=== PATIENT | male | born 1950 | race Hispanic/Latino ===

== ENCOUNTER 2020-01-22 05:29 | Observation (INO) | payer OTHER ==
[2020-01-20 12:37] LABS: BASOPHILS % 0.2 % (0.0-1.0); EOSINOPHILS # (AUTO) 0.1 (0.0-0.4); EOSINOPHILS % 0.7 % (0.0-6.0); HEMATOCRIT 40.6 % (38.2-49.6); HEMOGLOBIN 13.4 g/dL (14.0-18.0); LYMPHOCYTES # (AUTO) 2.1 (1.0-3.2); LYMPHOCYTES % 21.3 % (18.0-39.1); MEAN CORPUSCULAR HEMOGLOBIN 29.3 pg (28-32); MEAN CORPUSCULAR VOLUME 88.6 fL (81-99); MONOCYTES # (AUTO) 0.6 (0.2-0.8); MONOCYTES % 5.8 % (4.4-11.3); NEUTROPHILS # (AUTO) 7.2 (2.1-6.9); NEUTROPHILS % 71.4 % (38.7-80.0); PLATELET COUNT 250 x10e3/uL (140-360); RED BLOOD COUNT 4.58 x10e6/uL (4.3-5.7); RED CELL DISTRIBUTION WIDTH 13.4 % (11.7-14.4)
[2020-01-20 12:47] LABS: INR 0.96; PROTHROMBIN TIME 13.3 seconds (11.9-14.5)
[2020-01-20 12:48] LABS: PARTIAL THROMBOPLASTIN TIME 24.3 seconds (23.8-35.5)
[2020-01-20 12:54] LABS: ANION GAP 16.3 mmol/L (8-16); BLOOD UREA NITROGEN 15 mg/dL (7-26); BUN/CREATININE RATIO 15 (6-25); CALCIUM 9.1 mg/dL (8.4-10.2); CARBON DIOXIDE 26 mmol/L (22-29); CHLORIDE 102 mmol/L (98-107); CREATININE, SERUM 1.02 mg/dL (0.72-1.25); EST GLOMERULAR FILTRATION RATE > 60 ML/MIN (60-); GLUCOSE 217 mg/dL (74-118); POTASSIUM 4.3 mmol/L (3.5-5.1); SODIUM 140 mmol/L (136-145)
--- NOTE | 2020-01-20 14:20 | Diagnostic Imaging Report ---
EXAMINATION: CHEST 2 VIEWS INDICATION: Pre-operative COMPARISON: None FINDINGS: LINES/TUBES:None LUNGS:The lungs are well-inflated. No focal consolidation or pulmonary edema. PLEURA:No pleural effusion or pneumothorax. MEDIASTINUM:The cardiomediastinal silhouette appears normal in size and shape. BONES/SOFT TISSUES:No acute osseous injury. ABDOMEN:No free air under the diaphragm. Round peripherally calcified structure in the left upper abdomen, possibly splenic. IMPRESSION: No focal pneumonia or pulmonary edema. Signed by: Jose Manuel De La O MD on 01/20/2020 2:16 PM
[~2020-01-22] VITALS: Ht 175.3 cm; Wt 108.0 kg
[~2020-01-22 05:29] MED LIST: AVODART0.5 MG PO; FENOFIBRATE145 MG PO; GABAPENTIN300 MG PO; HUMALOG100 UNITS/ SQ; LANTUS100 UNITS/ SQ; LEVEMIR100 UNIT/1 SC; LEVOTHYROXINE88 MCG PO; METFORMIN HCL500 MG PO; SIMVASTATIN40 MG PO; VASCEPA PO; VITAMIN D1000 UNI1 PO; avodart PO; glimepiride PO; lisinopril PO
[2020-01-22] MEDS ORDERED: CEFAZOLIN SOD 1 GM/NS 50ML 100 ML IV ONE (06:07)
[2020-01-22] MEDS ORDERED: THROMBIN FOR SOLN 5,000 UNIT VIAL ONE (07:07)
[2020-01-22] MEDS ORDERED: VANCOMYCIN HCL 1 GM VIAL ONE (07:07)
[2020-01-22] MEDS ORDERED: LIDOCAINE 1% W/EPINEPHRINE 20 ML VIAL ONE (07:07)
[2020-01-22] MEDS ORDERED: LIDOCAINE HCL (LTA) 4 ML SOLN ONE (07:15)
[2020-01-22] MEDS ORDERED: ACETAMINOPHEN 1000 MG/100 ML 100 ML IV ONE (07:15)
[2020-01-22] MEDS ORDERED: MEPERIDINE HCL INJ 25 MG/ML VIAL ONE (09:23)
[2020-01-22] MEDS ORDERED: CARISOPRODOL 350 MG TAB PO PRN (09:30)
[2020-01-22] MEDS ORDERED: ONDANSETRON HCL INJ 2MG/ML 2ML 2 MG/ML VIAL IV PRN (09:30)
[2020-01-22] MEDS ORDERED: ZOLPIDEM TARTRATE 5 MG TAB PO PRN (09:30)
[2020-01-22] MEDS ORDERED: HYDROMORPHONE 2MG/ML 2 MG/ML ML IV PRN ×2 (09:30→09:45)
[2020-01-22] MEDS ORDERED: MAGNESIUM/ALUMINUM/SIMETHICONE 30 ML UDC PO PRN (09:30)
[2020-01-22] MEDS ORDERED: CEPACOL SORE THROAT LOZENGES PO PRN (09:30)
[2020-01-22] MEDS ORDERED: PROMETHAZINE HCL (IM) 25 MG/ML VIAL IM PRN (09:30)
[2020-01-22] MEDS ORDERED: OXYCODONE/ACETAMINOPHEN 5-325 1 EACH TABLET PO PRN (09:30)
[2020-01-22] MEDS ORDERED: MORPHINE SULFATE 5 MG/ML VIAL IM PRN (09:30)
[2020-01-22] MEDS ORDERED: ACETAMINOPHEN 325 MG TAB PO PRN (09:30)
--- OUTSIDE RECORDS SUMMARY | 2020-01-22 11:02 | XMS REPORT | Continuity of Care Document ---
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 Name Role Phone [employer] Unavailable Un available Problems Problem Status Onset Date Classification Date Reported Comments Source ACUTE ATAXIA, BRAIN TIA Active 10/13/2019 [facility] LEG PAIN Active 10/13/2019 [facility] LOW BS Active 09/07/2016 [facility] HYPOGLYCEMIA; RHABDOMYOLYSIS; DIZZINESS Active 09/07/2016 [facility] Other specified diseases of jaws 09/04/2016 09/07/2016 [facility] Essential (primary) hypertension 09/04/2016 09/07/2016 [facility] NECK PAIN Active 09/04/2016 [facility] Discharge Diagnosis: Ingrown toenail 04/25/2015 04/28/2015 [facility] TOE PAIN Active 04/25/2015 [facility] Discharge Diagnosis: Abdominal pain, acute 08/23/2014 08/26/2014 [facility] LOWER BACK PAIN Active 08/23/2014 [facility] ABD PAIN Active 12/23/2013 [facility] Discharge Diagnosis: Abdominal pain 12/23/2013 12/26/2013 [facility] Discharge Diagnosis: Acute gastroenteritis 12/23/2013 12/26/2013 [facility] Final: 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, Type I [juvenile Type], Uncontrolled 04/22/2013 04/30/2013 [facility] [place] ABDOMINAL PAIN Active 01/21/2012 [facility] Diabetes mellitus (disorder) R esolved Problem [facility] [place] Hypertensive disorder, systemic arterial (disorder) Resolved Problem 10/16/2019 [facility] Final: Unspecified Essential Hypertension 04/30/2013 [facility] [place] Final: Osteoarthrosis, Unspecified Wheth er Generalized or Localized, Involving Lower Leg 04/30/2013 [facility] [place] Hypothyroidism (disorder) Acti ve Problem [facility] Diabetes mellitus type 2 (disorder) Active Problem [facility] METABOLIC ENCEPHALOPATHY Active [facility] RHABDOMYOLYSIS Active [facility] DIZZINESS AND GIDDINESS [facility] OTHER LACK OF COORDINATION Act cedric [facility] TRANSIENT CEREBRAL ISCHEMIC ATTACK, UNSP Active [facility] Medications Medication Details Route Status Patient Instructions Ordering Provider Order Date Source Levemir 40 unit, Route: SUB-Q, Bedtime, Dosing Weight 104.545, kg, Start date: 10/14/19 21:00:00 CDT, Duration: 30 day, Stop date: 11/12/19 21:00:00 CDT Inactive 10/15/2019 [facility] insulin glargine Notes: (Same as: Lantus) Do not hold insulin without contacting prescriber WASTE: F/P - Black; E - Municipal Trash Bin "single patient use only" Stable for 28 days at room temperature Expires in days from Date Inactive 10/15/2019 [facility] simvastatin 40 mg oral tablet 40 mg = 1 tab, PO, Bedtime, # 30 tab, 0 Refill(s), [id number], 175.26, cm, 10/14/19 5:37:00 CDT, Height, 104.545, kg, 10/14/19 5:37:00 CDT, Weight Active 10/14/2019 [facility] Walker 1 ea, MISC, Daily, # 1 ea, 0 Refill(s), [id number], 175.26, cm, 10/14/19 5:37:00 CDT, Height, 104.545, kg, 10/14/19 5:37:00 CDT, Weight Active 10/14/2019 [facility] Bedside Toilet/Commode Misc/Other 1 ea, MISC, ONCE, Will need a letter of medical necessity for Medicare/insurance reimbursement, # 1 ea, 0 Refill(s), [id number], 175.26, cm, 10/14/19 5:37:00 CDT, Height, 104.545, kg, 10/14/19 5:37:00 CDT, Weight Active 10/14/2019 [facility] Valium Notes: (Same as: Valium) Inactive 10/14/2019 [facility] Aspirin 81 MG Enteric Coated Tablet Notes: Do not crush or chew. (Same As: Ecotrin) Inactive 10/14/2019 [facility] Saline Flush 0.9% Notes: (Same as: BD Posiflush) Inactive 10/14/2019 [facility] Lisinopril Notes: (Same as: Pr inivil, Zestril) Inactive 10/14/2019 [facility] Synthroid Notes: Take 1 hour b efore or 2 hours after meal; Enteral feeds may interefere with the absorption of this medication. (Same as: Levothroid, Synthroid) Inactive 10/14/2019 [facility] Hydralazine Notes: (Same as: A presoline) May interfere w/enteral feedings. Take With Food Inactive 10/14/2019 [facility] Dextrose 50% Syringe (D50W) 12 .5 gm, 25 mL, Route: IVP, Drug Form: INJ, Dosing Weight 104.545, kg, PRN, PRN Blood Glucose Results, Start date: 10/14/19 5:19:00 CDT, Duration: 30 day, Stop date: 11/13/19 5:18:00 CDT, 0 Inactive 10/14/2019 [facility] Glucagon 1 mg, Route: IM, Drug form: PDR/INJ, PRN, Dosing Weight 104.545, kg, PRN Blood Glucose Results, Start date: 10/14/19 5:19:00 CDT, Duration: 30 day, Stop date: 11/13/19 5:18:00 CDT, 0 Inactive 10/14/2019 [facility] Insulin Lispro Notes: (Same as : Humalog) Roll in palms of hands gently; Do not shake vigorously. WASTE: F/P - Black; E - Municipal Trash Bin Stable for 28 days at room temperature. Expires in days from Date Inactive 10/14/2019 [facility] Saline Flush 0.9% Notes: (Same as: BD Posiflush) Inactive 10/14/2019 [facility] Aspirin 81 MG Chewable Tablet Notes: Take with food. Inactive 10/14/2019 [facility] insulin aspart Notes: Roll in palms of hands gently; Do not shake vigorously. (Same as: NovoLOG) "single patient use only" WASTE: F/P - Black; E - Municipal Trash Bin Stable for 28 days at room temperature. Expires in days from Date Inactive 09/08/2016 [facility] Humalog 5 unit, Route: SUB-Q, ONCE, Dosing Weight 113.636, kg, Start date: 09/08/16 11:33:00 CDT, Stop date: 09/08/16 11:33:00 CDT Inactive 09/08/2016 [facility] simvastatin 40 mg oral tablet 40 mg = 1 tab, PO, Bedtime, 0 Refill(s) Active 09/07/2016 [facility] Insulin Glargine 100 UNT/ML Injectable S olution [Lantus] 75 unit, SUB-Q, Bedtime, # 10 mL, 3 Refill(s) Active 09/07/2016 [facility] lisinopril 20 mg oral tablet 2 0 mg = 1 tab, PO, BID, 0 Refill(s) Active 09/07/2016 [facility] Humalog See Instructions, 1 un it SUB-Q TID-Before Meals, 0 Refill(s) Active 09/07/2016 [facility] levothyroxine 175 mcg (0.175 mg) oral tablet 175 microgram = 1 tab, PO, Daily, # 30 tab, 0 Refill(s) Active 09/07/2016 [facility] glimepiride 4 mg, PO, BID, 0 R efill(s) No Longer Active 09/07/2016 [facility] Fluticasone propionate 0.05 MG/ACTUAT Me tered Dose Nasal [place] 1 spray, NASAL, Daily, # 16 gm, 0 Refill(s) Active 09/07/2016 [facility] Fenofibrate 145 MG Oral Tablet 145 mg = 1 tab, PO, Daily, 0 Refill(s) Active 09/07/2016 [facility] Nifedical XL Notes: (Same as: Adalat CC, Procardia XL) Give on empty stomach. Take 1 hour before or 2 hours after meal; "Avoid grapefruit and grapefruit juice". Do not crush Inactive 09/07/2016 [facility] D5W 1,000 mL 1,000 mL, Rate: 7 5 ml/hr, Infuse over: 13.3 hr, Route: IV, Dosing Weight 113.636 kg, Total Volume: 1,000, Start date: 09/07/16 12:29:00 CDT, Duration: 30 day, Stop date: 10/07/16 12:28:00 CDT No Longer Active 09/07/2016 [facility] doxycycline hyclate 100 mg oral tablet 100 mg = 1 tab, PO, Q12H, X 7 day, # 14 tab, 0 Refill(s) Active 04/25/2015 [facility] Ondansetron 4 MG Disintegrating Tablet Special Instructions: Dissolve tab under tongue Active 08/23/2014 [facility] Acetaminophen 300 MG / Codeine Phosphate 30 MG Oral Tablet [Tylenol with Codeine #3] 1 - 2 tab, PO, Q4H, PRN Pain, X 2 day, # 20 tab, 0 Refill(s) No Longer Active 08/23/2014 [facility] Valium 10 mg, Route: PO, ONCE, Dosing Weight 106.364, kg, Priority: STAT, Start date: 08/23/14 10:57:00, Stop date: 08/23/14 10:57:00 Inactive 08/23/2014 [facility] Ondansetron 4 mg, Route: IVP, Drug form: INJ, ONCE, Dosing Weight 106.364, kg, Priority: STAT, Start date: 08/23/14 9:27:00, Stop date: 08/23/14 9:27:00 Inactiv e 08/23/2014 [facility] Morphine 4 mg, Route: IVP, Bernard g form: INJ, ONCE, Dosing Weight 106.364, kg, Priority: STAT, Start date: 08/23/14 9:27:00, Stop date: 08/23/14 9:27:00 Inactive 08/23/2014 [facility] Ciprofloxacin 500 MG Oral Tablet [Cipro] 500 mg = 1 tab, PO, Q12H, # 10 tab, 0 Refill(s) Active 12/24/2013 [facility] Dicyclomine Hydrochloride 20 MG Oral Tablet [Bentyl] 20 mg = 1 tab, PO, QID, # 28 tab, 0 Refill(s) Active 12/24/2013 [facility] Morphine 4 mg, Route: IVP, ONC E, Dosing Weight 106.818, kg, Priority: STAT, Start date: 12/23/13 17:18:00, Stop date: 12/23/13 17:18:00 Inactive 12/23/2013 [facility] Ondansetron 4 mg, Route: IVP, Drug form: INJ, ONCE, Dosing Weight 106.818, kg, Priority: STAT, Start date: 12/23/13 17:18:00, Stop date: 12/23/13 17:18:00 Inactive 12/23/2013 [facility] Ultram 50 mg oral tablet 50 mg , 1 tab, PO, Q4H, PRN, 20 tab, pain, Substitution Allowed PO Active [facility] 01/21/2012 [facility] Cipro 500 mg oral tablet 500 m g, 1 tab, PO, Q12H, 14 tab, Substitution Allowed, TAB PO Active [facility] 01/21/2012 [facility] ondansetron 4 mg, 2 mL, Route: IVP, Drug form: INJ, ONCE, Dosing Weight 111.364, kg, Priority: STAT, Start date: 01/21/12 7:55:00, Stop date: 01/21/12 7:55:00 IVP No Longer Active [facility] 01/21/2012 [facility] hydromorphone 1 mg, 1 mL, Rout e: IVP, Drug form: SOLN, ONCE, Dosing Weight 111.364, kg, Priority: STAT, Start date: 01/21/12 7:55:00, Stop date: 01/21/12 7:55:00 IVP No Longer Active [facility] 01/21/2012 [facility] Sodium Chloride 0.9% (Bolus) IV 500 mL 500 mL, Rate: 1,000 ml/hr, Infuse over: 0.5 hr, Route: IV, kg, Total Volume: 500, Bolus dose, Priority: STAT, Start date: 01/21/12 7:55:00, Duration: 1 doses or times, Stop date: 01/21/12 8:24:00 IV No Longer Active [facility] 01/21/2012 [facility] Saline Flush 0.9% 5 mL, Route: IVP, Drug Form: INJ, Dosing Weight 111.364, kg, PRN, PRN Line Flush, Start date: 01/21/12 7:55:00, Duration: 24 hr, Stop date: 01/22/12 7:54:00 IVP No Longer Active [facility] 01/21/2012 [facility] Allergies, Adverse Reactions, Alerts Substance Category Reaction Severity Reaction type Status Date Reported Comments Source No Known Medication Allergies Assertion Drug aller [facility] Immunizations No Data Provided for This Section Results Order Name Results Value Reference Range Date Interpretation Comments Source URINE AND STOOL UA Turbidity Clear (10/14/19 3:57 AM) Clear 10/14/2019 [facility] URINE AND STOOL UA Spec Grav 1.030 <=1.030 10/14/2019 [facility] URINE AND STOOL UA pH 5.0 5.0 - 8.0 10/14/2019 [facility] URINE AND STOOL UA Protein Negative mg/dL Negative mg/dL 10/14/2019 [facility] URINE AND STOOL UA Glucose 50 mg/dL Negative mg/dL 10/14/2019 [facility] URINE AND STOOL UA Ketones Negative mg/dL Negative mg/dL 10/14/2019 [facility] URINE AND STOOL UA Bili Negative *NA* (10/14/19 3:57 AM) Negative 10/14/2019 [facility] URINE AND STOOL UA Blood Negative (10/14/19 3:57 AM) Negative 10/14/2019 [facility] URINE AND STOOL UA Nitrite Negative (10/14/19 3:57 AM) Negative 10/14/2019 [facility] URINE AND STOOL UA Leuk Est Trace *ABN* (10/14/19 3:57 AM) Negative 10/14/2019 [facility] URINE AND STOOL UA Sq Epi Occasional /LPF Few /LPF 10/14/2019 [facility] URINE AND STOOL UA WBC 4 0 - 5 10/14/2019 [facility] URINE AND STOOL UA RBC 3 0 - 2 10/14/2019 [facility] URINE AND STOOL UA Bacteria Occasional /HPF None Seen /HPF 10/14/2019 [facility] URINE AND STOOL UA Mucus Few /LPF None Seen /LPF 10/14/2019 [facility] URINE AND STOOL UA Hyal Cast 1 0 - 2 10/14/2019 [facility] URINE AND STOOL UA Color Ltyellow 10/14/2019 [facility] URINE AND STOOL UA Urobilinogen <=1.0 mg/dL 0.1 - 1.0 10/14/2019 [facility] LIPIDS Trig 215 <=149 mg/dL 10/14/2019 [facility] LIPIDS Chol 146 <=199 mg/dL 10/14/2019 [facility] LIPIDS HDL 30 >=61 mg/dL 10/14/2019 [facility] LIPIDS CHD Risk 4.87 4.00 - 7.30 10/14/2019 [facility] LIPIDS LDL (Calculated) 73 <=99 mg/dL 10/14/2019 [facility] LIPIDS VLDL 43 10/14/2019 [facility] SPECIAL CHEMISTRY Hgb A1C 8.9 <=5.6 % 10/14/2019 [facility] CARDIAC ENZYMES Total CK 115 12 - 191 10/14/2019 [facility] CARDIAC ENZYMES CK MB 2.9 0.5 - 3.6 10/14/2019 [facility] CARDIAC ENZYMES Troponin-I <0.02 0.00 - 0.40 10/14/2019 [facility] CARDIAC ENZYMES CK MB Index 2.5 0.0 - 2.5 10/14/2019 [facility] CHEM PANEL Glucose Lvl 180 70 - 99 10/14/2019 [facility] CHEM PANEL BUN 22 7 - 22 10/14/2019 [facility] CHEM PANEL Creatinine Lvl 1.14 0.50 - 1.40 10/14/2019 [facility] CHEM PANEL Sodium Lvl 139 135 - 145 10/14/2019 [facility] CHEM PANEL Potassium Lvl 3.7 3.5 - 5.1 10/14/2019 [facility] CHEM PANEL Chloride Lvl 105 95 - 109 10/14/2019 [facility] CHEM PANEL CO2 28 24 - 32 10/14/2019 [facility] CHEM PANEL Calcium Lvl 8.9 8.5 - 10.5 10/14/2019 [facility] CHEM PANEL Total Protein 7.2 6.4 - 8.4 10/14/2019 [facility] CHEM PANEL Albumin Lvl 3.7 3.5 - 5.0 10/14/2019 [facility] CHEM PANEL ALT 36 0 - 65 10/14/2019 [facility] CHEM PANEL AST 24 0 - 37 10/14/2019 [facility] CHEM PANEL Alk Phos 70 39 - 136 10/14/2019 [facility] CHEM PANEL Bili Total 0.3 0.2 - 1.3 10/14/2019 [facility] CHEM PANEL AGAP 9.7 10.0 - 20.0 10/14/2019 [facility] CHEM PANEL B/C Ratio 19 6 - 25 10/14/2019 [facility] CHEM PANEL Globulin 3.5 2.7 - 4.2 10/14/2019 [facility] CHEM PANEL A/G Ratio 1.1 0.7 - 1.6 10/14/2019 [facility] CHEM PANEL eGFR 66 10/14/2019 Result Comment: The eGFR is calculated using the CKD-EPI formula. In most young, healthy individuals the eGFR will be >90 mL/min/1.73m2. The eGFR declines with age. An eGFR of 60-89 may be normal in some populations, particularly the elderly, for whom the CKD-EPI formula has not been extensively validated. Use of the eGFR is not recommended in the following populations:

Individuals with unstable creatinine concentrations, including patients and those with serious co-morbid conditions.

Patients with extremes in muscle mass or diet.

The data above are obtained from the National Kidney Disease Education Program (NKDEP) which additionally recommends that when the eGFR is used in patients with extremes of body mass index for purposes of drug dosing, the eGFR should be multiplied by the estimated BMI. [facility] WBC 10.5 3.7 - 10.4 10/14/2019 [facility] RBC 4.41 4.70 - 6.10 10/14/2019 [facility] Hgb 12.8 14.0 - 18.0 10/14/2019 [facility] Hct 38.0 42.0 - 54.0 10/14/2019 [facility] MCV 86.2 80.0 - 94.0 10/14/2019 [facility] MCH 29.0 27.0 - 31.0 10/14/2019 [facility] MCHC 33.6 32.0 - 36.0 10/14/2019 [facility] RDW 14.2 11.5 - 14.5 10/14/2019 [facility] Platelet 256 133 - 450 10/14/2019 [facility] MPV 7.8 7.4 - 10.4 10/14/2019 [facility] Segs 62.9 45.0 - 75.0 10/14/2019 [facility] Lymphocytes 28.2 20.0 - 40.0 10/14/2019 [facility] Monocytes 7.2 2.0 - 12.0 10/14/2019 [facility] Eosinophils 1.2 0.0 - 4.0 10/14/2019 [facility] Basophils 0.5 0.0 - 1.0 10/14/2019 [facility] Neutrophils # 6.6 1.5 - 8.1 10/14/2019 [facility] Lymphocytes # 3.0 1.0 - 5.5 10/14/2019 [facility] Monocytes # 0.8 0.0 - 0.8 10/14/2019 [facility] HEMATOLOGY Eosinophils # 0.1 0.0 - 0.5 10/14/2019 [facility] HEMATOLOGY Basophils # 0.1 0.0 - 0.2 10/14/2019 [facility] CARDIAC ENZYMES Total CK 1103 12 - 191 09/08/2016 [facility] CHEM PANEL Glucose Lvl 219 70 - 99 09/08/2016 [facility] CHEM PANEL CO2 31 24 - 32 09/08/2016 [facility] CHEM PANEL BUN 12 7 - 22 09/08/2016 [facility] CHEM PANEL Creatinine Lvl 1.26 0.50 - 1.40 09/08/2016 [facility] CHEM PANEL Sodium Lvl 136 135 - 145 09/08/2016 [facility] CHEM PANEL Potassium Lvl 3.6 3.5 - 5.1 09/08/2016 [facility] CHEM PANEL Chloride Lvl 98 95 - 109 09/08/2016 [facility] CHEM PANEL Calcium Lvl 8.9 8.5 - 10.5 09/08/2016 [facility] CHEM PANEL AGAP 10.6 10.0 - 20.0 09/08/2016 [facility] CHEM PANEL eGFR 60 09/08/2016 Result Comment: The eGFR is calculated using the CKD-EPI formula. In most young, healthy individuals the eGFR will be >90 mL/min/1.73m2. The eGFR declines with age. An eGFR of 60-89 may be normal in some populations, particularly the elderly, for whom the CKD-EPI formula has not been extensively validated. Use of the eGFR is not recommended in the following populations:

Individuals with unstable creatinine concentrations, including patients and those with serious co-morbid conditions.

Patients with extremes in muscle mass or diet.

The data above are obtained from the National Kidney Disease Education Program (NKDEP) which additionally recommends that when the eGFR is used in patients with extremes of body mass index for purposes of drug dosing, the eGFR should be multiplied by the estimated BMI. [facility] CHEM PANEL Phosphorus 2.8 2.5 - 4.5 09/08/2016 [facility] CHEM PANEL Magnesium Lvl 2.4 1.8 - 2.4 09/08/2016 [facility] HEMATOLOGY Lymphocytes # 2.9 1.0 - 5.5 09/08/2016 [facility] HEMATOLOGY Segs-Bands # 7.3 1.5 - 8.1 09/08/2016 [facility] HEMATOLOGY Basophils 0.4 0.0 - 1.0 09/08/2016 [facility] HEMATOLOGY Eosinophils 0.9 0.0 - 4.0 09/08/2016 [facility] HEMATOLOGY Monocytes 5.5 2.0 - 12.0 09/08/2016 [facility] HEMATOLOGY Lymphocytes 26.6 20.0 - 40.0 09/08/2016 [facility] HEMATOLOGY Eosinophils # 0.1 0.0 - 0.5 09/08/2016 [facility] HEMATOLOGY Monocytes # 0.6 0.0 - 0.8 09/08/2016 [facility] HEMATOLOGY Segs 66.6 45.0 - 75.0 09/08/2016 [facility] HEMATOLOGY MCHC 33.2 32.0 - 36.0 09/08/2016 [facility] HEMATOLOGY MCH 29.3 27.0 - 31.0 09/08/2016 [facility] HEMATOLOGY Platelet 197 133 - 450 09/08/2016 [facility] HEMATOLOGY MPV 8.8 7.4 - 10.4 09/08/2016 [facility] HEMATOLOGY RDW 15.8 11.5 - 14.5 09/08/2016 [facility] HEMATOLOGY RBC 4.57 4.70 - 6.10 09/08/2016 [facility] HEMATOLOGY WBC 10.9 3.7 - 10.4 09/08/2016 [facility] HEMATOLOGY MCV 88.3 80.0 - 94.0 09/08/2016 [facility] HEMATOLOGY Hct 40.3 42.0 - 54.0 09/08/2016 [facility] HEMATOLOGY Hgb 13.4 14.0 - 18.0 09/08/2016 [facility] CARDIAC ENZYMES CK MB Index 0.8 0.0 - 2.5 09/07/2016 [facility] CARDIAC ENZYMES Troponin-I <0.02 0.00 - 0.40 09/07/2016 [facility] CARDIAC ENZYMES CK MB 12.5 0.5 - 3.6 09/07/2016 [facility] CARDIAC ENZYMES Total CK 1521 12 - 191 09/07/2016 [facility] CHEM PANEL eGFR 61 09/07/2016 Result Comment: The eGFR is calculated using the CKD-EPI formula. In most young, healthy individuals the eGFR will be >90 mL/min/1.73m2. The eGFR declines with age. An eGFR of 60-89 may be normal in some populations, particularly the elderly, for whom the CKD-EPI formula has not been extensively validated. Use of the eGFR is not recommended in the following populations:

Individuals with unstable creatinine concentrations, including patients and those with serious co-morbid conditions.

Patients with extremes in muscle mass or diet.

The data above are obtained from the National Kidney Disease Education Program (NKDEP) which additionally recommends that when the eGFR is used in patients with extremes of body mass index for purposes of drug dosing, the eGFR should be multiplied by the estimated BMI. [facility] CHEM PANEL B/C Ratio 9 6 - 25 09/07/2016 [facility] CHEM PANEL A/G Ratio 1.1 0.7 - 1.6 09/07/2016 [facility] CHEM PANEL AGAP 11.3 10.0 - 20.0 09/07/2016 [facility] CHEM PANEL Globulin 3.7 2.7 - 4.2 09/07/2016 [facility] CHEM PANEL Bili Total 0.9 0.2 - 1.3 09/07/2016 [facility] CHEM PANEL CO2 30 24 - 32 09/07/2016 [facility] CHEM PANEL Calcium Lvl 8.8 8.5 - 10.5 09/07/2016 [facility] CHEM PANEL Albumin Lvl 4.0 3.5 - 5.0 09/07/2016 [facility] CHEM PANEL Total Protein 7.7 6.4 - 8.4 09/07/2016 [facility] CHEM PANEL Glucose Lvl 91 70 - 99 09/07/2016 [facility] CHEM PANEL BUN 11 7 - 22 09/07/2016 [facility] CHEM PANEL Creatinine Lvl 1.24 0.50 - 1.40 09/07/2016 [facility] CHEM PANEL Sodium Lvl 138 135 - 145 09/07/2016 [facility] CHEM PANEL Chloride Lvl 100 95 - 109 09/07/2016 [facility] CHEM PANEL Potassium Lvl 3.3 3.5 - 5.1 09/07/2016 [facility] CHEM PANEL ALT 34 0 - 65 09/07/2016 [facility] CHEM PANEL AST 71 0 - 37 09/07/2016 [facility] CHEM PANEL Alk Phos 79 39 - 136 09/07/2016 [facility] HEMATOLOGY Basophils # 0.1 0.0 - 0.2 09/07/2016 [facility] HEMATOLOGY Monocytes # 0.6 0.0 - 0.8 09/07/2016 [facility] HEMATOLOGY Segs 81.8 45.0 - 75.0 09/07/2016 [facility] HEMATOLOGY Segs-Bands # 9.6 1.5 - 8.1 09/07/2016 [facility] HEMATOLOGY Basophils 0.5 0.0 - 1.0 09/07/2016 [facility] HEMATOLOGY Lymphocytes # 1.5 1.0 - 5.5 09/07/2016 [facility] HEMATOLOGY Monocytes 4.9 2.0 - 12.0 09/07/2016 [facility] HEMATOLOGY Lymphocytes 12.7 20.0 - 40.0 09/07/2016 [facility] HEMATOLOGY Eosinophils 0.1 0.0 - 4.0 09/07/2016 [facility] HEMATOLOGY MCV 87.3 80.0 - 94.0 09/07/2016 [facility] HEMATOLOGY RDW 15.8 11.5 - 14.5 09/07/2016 [facility] HEMATOLOGY Hgb 13.3 14.0 - 18.0 09/07/2016 [facility] HEMATOLOGY WBC 11.8 3.7 - 10.4 09/07/2016 [facility] HEMATOLOGY MCHC 33.1 32.0 - 36.0 09/07/2016 [facility] HEMATOLOGY MCH 28.9 27.0 - 31.0 09/07/2016 [facility] HEMATOLOGY Hct 40.1 42.0 - 54.0 09/07/2016 [facility] HEMATOLOGY Platelet 201 133 - 450 09/07/2016 [facility] HEMATOLOGY MPV 8.7 7.4 - 10.4 09/07/2016 [facility] HEMATOLOGY RBC 4.59 4.70 - 6.10 09/07/2016 [facility] URINE AND STOOL UA Mucus Rare /LPF None Seen /LPF 09/07/2016 [facility] URINE AND STOOL UA Bacteria Occasional /HPF None Seen /HPF 09/07/2016 [facility] URINE AND STOOL UA RBC 0-2 /HPF 0 - 2 09/07/2016 [facility] URINE AND STOOL UA WBC 0-2 /HPF None Seen /HPF 09/07/2016 [facility] URINE AND STOOL Micro? Performed (09/07/16 10:40 AM) 09/07/2016 [facility] URINE AND STOOL UA Sq Epi Few /LPF Few /LPF 09/07/2016 [facility] URINE AND STOOL UA Bili Negative *NA* (09/07/16 10:40 AM) Negative 09/07/2016 [facility] URINE AND STOOL UA Leuk Est Negative (09/07/16 10:40 AM) Negative 09/07/2016 [facility] URINE AND STOOL UA Nitrite Negative (09/07/16 10:40 AM) Negative 09/07/2016 [facility] URINE AND STOOL UA Urobilinogen 0.2 0.1 - 1.0 09/07/2016 [facility] URINE AND STOOL UA Blood Trace *ABN* (09/07/16 10:40 AM) Negative 09/07/2016 [facility] URINE AND STOOL UA Color Yellow *NA* (09/07/16 10:40 AM) Yellow 09/07/2016 [facility] URINE AND STOOL UA Turbidity Clear (09/07/16 10:40 AM) Clear 09/07/2016 [facility] URINE AND STOOL UA pH 6.0 5.0 - 8.0 09/07/2016 [facility] URINE AND STOOL UA Protein Negative (09/07/16 10:40 AM) Negative 09/07/2016 [facility] URINE AND STOOL UA Spec Grav 1.010 <=1.030 09/07/2016 [facility] URINE AND STOOL UA Glucose 100 mg/dL Negative mg/dL 09/07/2016 [facility] URINE AND STOOL UA Ketones Negative *NA* (09/07/16 10:40 AM) Negative 09/07/2016 [facility] CHEM PANEL eGFR 91 08/23/2014 <sup>1</sup>Result Comment: The eGFR is calculated using the CKD-EPI formula. In most young, healthy individuals the eGFR will be >90 mL/min/1.73m2. The eGFR declines with age. An eGFR of 60-89 may be normal in some populations, particularly the elderly, for whom the CKD-EPI formula has not been extensively validated. Use of the eGFR is not recommended in the following populations:& lt;br/>
Individuals with unstable creatinine concentrations, including patients and those with serious co-morbid conditions.

Patients with extremes in muscle mass or diet.

The data above are obtained from the National Kidney Disease Education Program (NKDEP) which additionally recommends that when the eGFR is used in patients with extremes of body mass index for purposes of drug dosing, the eGFR should be multiplied by the estimated BMI. [facility] CHEM PANEL Chloride Lvl 100 95 - 109 08/23/2014 [facility] CHEM PANEL Albumin Lvl 3.5 3.5 - 5.0 08/23/2014 [facility] CHEM PANEL Calcium Lvl 8.2 8.5 - 10.5 08/23/2014 [facility] CHEM PANEL Potassium Lvl 3.8 3.5 - 5.1 08/23/2014 [facility] CHEM PANEL Creatinine Lvl 0.9 0.5 - 1.4 08/23/2014 [facility] CHEM PANEL Sodium Lvl 137 135 - 145 08/23/2014 [facility] CHEM PANEL AST 65 0 - 37 08/23/2014 [facility] CHEM PANEL Total Protein 7.2 6.4 - 8.4 08/23/2014 [facility] CHEM PANEL ALT 53 0 - 65 08/23/2014 [facility] CHEM PANEL BUN 9 7 - 22 08/23/2014 [facility] CHEM PANEL CO2 27 24 - 32 08/23/2014 [facility] CHEM PANEL Glucose Lvl 257 70 - 99 08/23/2014 <sup>2</sup>Interpretive Data: Adult ref erence range values reflect the clinical guidelines
of the [place] [employer]. [facility] CHEM PANEL Bili Total 0.4 0.2 - 1.3 08/23/2014 [facility] CHEM PANEL Alk Phos 74 39 - 136 08/23/2014 [facility] CHEM PANEL A/G Ratio 0.9 0.7 - 1.6 08/23/2014 [facility] CHEM PANEL B/C Ratio 10 6 - 25 08/23/2014 [facility] CHEM PANEL Globulin 3.7 2.0 - 4.0 08/23/2014 [facility] CHEM PANEL AGAP 13.8 10.0 - 20.0 08/23/2014 [facility] HEMATOLOGY Segs 66.1 45.0 - 75.0 08/23/2014 [facility] HEMATOLOGY Lymphocytes 27.5 20.0 - 40.0 08/23/2014 [facility] HEMATOLOGY Monocytes 5.3 2.0 - 12.0 08/23/2014 [facility] HEMATOLOGY Monocytes # 0.5 0.0 - 0.8 08/23/2014 [facility] HEMATOLOGY Basophils # 0.1 0.0 - 0.2 08/23/2014 [facility] HEMATOLOGY Eosinophils # 0.1 0.0 - 0.5 08/23/2014 [facility] Lymphocytes # 2.7 1.0 - 5.5 08/23/2014 [facility] HEMATOLOGY Eosinophils 0.6 0.0 - 4.0 08/23/2014 [facility] HEMATOLOGY Basophils 0.5 0.0 - 1.0 08/23/2014 [facility] Segs-Bands # 6.4 1.5 - 8.1 08/23/2014 [facility] MPV 9.2 7.4 - 10.4 08/23/2014 [facility] WBC 9.7 3.7 - 10.4 08/23/2014 [facility] RBC 4.20 4.70 - 6.10 08/23/2014 [facility] Hct 38.0 42.0 - 54.0 08/23/2014 [facility] Hgb 13.1 14.0 - 18.0 08/23/2014 [facility] MCV 90.5 80.0 - 94.0 08/23/2014 [facility] MCHC 34.5 32.0 - 36.0 08/23/2014 [facility] MCH 31.2 27.0 - 31.0 08/23/2014 [facility] RDW 15.8 11.5 - 14.5 08/23/2014 [facility] Platelet 173 133 - 450 08/23/2014 [facility] URINE AND STOOL UA Spec Grav 1.032 <=1.030 08/23/2014 [facility] URINE AND STOOL UA Turbidity Slight *ABN* (08/23/14 9:17 AM) Clear 08/23/2014 [facility] URINE AND STOOL UA Color Yellow *NA* (08/23/14 9:17 AM) Yellow 08/23/2014 [facility] URINE AND STOOL UA Urobilinogen <=1.0 mg/dL 0.1 - 1.0 08/23/2014 [facility] URINE AND STOOL UA Mucus Many /LPF None Seen /LPF 08/23/2014 [facility] URINE AND STOOL UA RBC 17 0 - 2 08/23/2014 [facility] URINE AND STOOL UA WBC 6 0 - 5 08/23/2014 [facility] URINE AND STOOL UA Leuk Est Negative (08/23/14 9:17 AM) Negative 08/23/2014 [facility] URINE AND STOOL UA Nitrite Negative (08/23/14 9:17 AM) Negative 08/23/2014 [facility] URINE AND STOOL UA Blood Small *ABN* (08/23/14 9:17 AM) Negative 08/23/2014 [facility] URINE AND STOOL UA Sq Epi Occasional /LPF Few /LPF 08/23/2014 [facility] URINE AND STOOL UA Glucose 500 mg/dL Negative mg/dL 08/23/2014 [facility] URINE AND STOOL UA Protein 30 mg/dL Negative mg/dL 08/23/2014 [facility] URINE AND STOOL UA pH 5.0 5.0 - 8.0 08/23/2014 [facility] URINE AND STOOL UA Bili Negative *NA* (08/23/14 9:17 AM) Negative 08/23/2014 [facility] URINE AND STOOL UA Ketones Negative mg/dL Negative mg/dL 08/23/2014 [facility] CHEM PANEL eGFR 64 12/23/2013 <sup>1</sup>Result Comment: The eGFR is calculated using the CKD-EPI formula. In most young, healthy individuals the eGFR will be >90 mL/min/1.73m2. The eGFR declines with age. An eGFR of 60-89 may be normal in some populations, particularly the elderly, for whom the CKD-EPI formula has not been extensively validated. Use of the eGFR is not recommended in the following populations:& lt;br/>
Individuals with unstable creatinine concentrations, including patients and those with serious co-morbid conditions.

Patients with extremes in muscle mass or diet.

The data above are obtained from the National Kidney Disease Education Program (NKDEP) which additionally recommends that when the eGFR is used in patients with extremes of body mass index for purposes of drug dosing, the eGFR should be multiplied by the estimated BMI. [facility] CHEM PANEL Albumin Lvl 4.5 3.5 - 5.0 12/23/2013 [facility] CHEM PANEL Creatinine Lvl 1.2 0.5 - 1.4 12/23/2013 [facility] CHEM PANEL Potassium Lvl 3.6 3.5 - 5.1 12/23/2013 [facility] CHEM PANEL BUN 16 7 - 22 12/23/2013 [facility] CHEM PANEL Glucose Lvl 328 70 - 99 12/23/2013 <sup>2</sup>Interpretive Data: Adult ref erence range values reflect the clinical guidelines
of the [place] [employer]. [facility] CHEM PANEL CO2 24 24 - 32 12/23/2013 [facility] CHEM PANEL Chloride Lvl 97 95 - 109 12/23/2013 [facility] CHEM PANEL Calcium Lvl 10.0 8.5 - 10.5 12/23/2013 [facility] CHEM PANEL Sodium Lvl 134 135 - 145 12/23/2013 [facility] CHEM PANEL Total Protein 9.2 6.4 - 8.4 12/23/2013 [facility] CHEM PANEL AST 56 0 - 37 12/23/2013 [facility] CHEM PANEL ALT 67 0 - 65 12/23/2013 [facility] CHEM PANEL Bili Total 0.6 0.2 - 1.3 12/23/2013 [facility] CHEM PANEL Alk Phos 102 39 - 136 12/23/2013 [facility] CHEM PANEL B/C Ratio 13 6 - 25 12/23/2013 [facility] CHEM PANEL AGAP 16.6 10.0 - 20.0 12/23/2013 [facility] CHEM PANEL A/G Ratio 1.0 0.7 - 1.6 12/23/2013 [facility] CHEM PANEL Globulin 4.7 2.0 - 4.0 12/23/2013 [facility] HEMATOLOGY Eosinophils 0.1 0.0 - 4.0 12/23/2013 [facility] HEMATOLOGY Basophils 0.6 0.0 - 1.0 12/23/2013 [facility] HEMATOLOGY Lymphocytes # 1.7 1.0 - 5.5 12/23/2013 [facility] HEMATOLOGY Segs-Bands # 16.5 1.5 - 8.1 12/23/2013 [facility] HEMATOLOGY Monocytes # 1.0 0.0 - 0.8 12/23/2013 [facility] HEMATOLOGY Basophils # 0.1 0.0 - 0.2 12/23/2013 [facility] HEMATOLOGY Lymphocytes 8.9 20.0 - 40.0 12/23/2013 [facility] HEMATOLOGY Monocytes 5.0 2.0 - 12.0 12/23/2013 [facility] HEMATOLOGY Segs 85.4 45.0 - 75.0 12/23/2013 [facility] HEMATOLOGY RDW 14.7 11.5 - 14.5 12/23/2013 [facility] HEMATOLOGY Platelet 319 133 - 450 12/23/2013 [facility] HEMATOLOGY MPV 9.2 7.4 - 10.4 12/23/2013 [facility] HEMATOLOGY RBC 5.63 4.70 - 6.10 12/23/2013 [facility] HEMATOLOGY WBC 19.3 3.7 - 10.4 12/23/2013 [facility] HEMATOLOGY MCV 89.8 80.0 - 94.0 12/23/2013 [facility] HEMATOLOGY Hgb 16.5 14.0 - 18.0 12/23/2013 [facility] HEMATOLOGY Hct 50.5 42.0 - 54.0 12/23/2013 [facility] HEMATOLOGY MCHC 32.6 32.0 - 36.0 12/23/2013 [facility] HEMATOLOGY MCH 29.3 27.0 - 31.0 12/23/2013 [facility] CHEMISTRY B/C Ratio 12 6 - 25 01/21/2012 Normal [facility] CHEMISTRY AGAP 13.8 10.0 - 20.0 01/21/2012 Normal [facility] CHEMISTRY A/G Ratio 1.1 0.7 - 1.6 01/21/2012 Normal [facility] CHEMISTRY Globulin 3.7 2.0 - 4.0 01/21/2012 Normal [facility] CHEMISTRY eGFR 73 01/21/2012 NA <sup>1</sup>Result Comment: The eGFR is calculated using the CKD-EPI formula. In most young, healthy individuals the eGFR will be >90 mL/min/1.73m2. The eGFR declines with age. An eGFR of 60-89 may be normal in some populations, particularly the elderly, for whom the CKD-EPI formula has not been extensively validated. Use of the eGFR is not recommended in the following populations:& lt;br/>
Individuals with unstable creatinine concentrations, including patients and those with serious co-morbid conditions.

Patients with extremes in muscle mass or diet.

The data above are obtained from the National Kidney Disease Education Program (NKDEP) which additionally recommends that when the eGFR is used in patients with extremes of body mass index for purposes of drug dosing, the eGFR should be multiplied by the estimated BMI. [facility] CHEMISTRY Creatinine Lvl 1.1 0.5 - 1.4 01/21/2012 Normal [facility] CHEMISTRY Glucose Lvl 311 70 - 99 01/21/2012 [facility] <sup>2</sup>Interpretive Data: Adult ref erence range values reflect the clinical guidelines
of the [place] [employer]. [facility] CHEMISTRY BUN 13 7 - 22 01/21/2012 Normal [facility] CHEMISTRY CO2 28 24 - 32 01/21/2012 Normal [facility] CHEMISTRY Calcium Lvl 8.7 8.5 - 10.5 01/21/2012 Normal [facility] CHEMISTRY Potassium Lvl 3.8 3.5 - 5.1 01/21/2012 [facility] CHEMISTRY Chloride Lvl 100 95 - 109 01/21/2012 [facility] CHEMISTRY Sodium Lvl 138 135 - 145 01/21/2012 [facility] CHEMISTRY Albumin Lvl 4.1 3.5 - 5.0 01/21/2012 [facility] CHEMISTRY Alk Phos 85 39 - 136 01/21/2012 [facility] CHEMISTRY ALT 62 0 - 65 01/21/2012 [facility] CHEMISTRY Total Protein 7.8 6.4 - 8.4 01/21/2012 [facility] CHEMISTRY Bili Total 0.7 0.2 - 1.3 01/21/2012 [facility] CHEMISTRY AST 45 0 - 37 01/21/2012 [facility] CHEMISTRY Lipase Lvl 246 73 - 393 01/21/2012 [facility] HEMATOLOGY Hct 39.2 42.0 - 54.0 01/21/2012 LOW [facility] HEMATOLOGY Platelet 211 133 - 450 01/21/2012 Normal [facility] HEMATOLOGY MCHC 34.2 32.0 - 36.0 01/21/2012 Normal [facility] HEMATOLOGY MCV 91.1 80.0 - 94.0 01/21/2012 Normal [facility] HEMATOLOGY RDW 14.5 11.5 - 14.5 01/21/2012 Normal [facility] HEMATOLOGY MCH 31.2 27.0 - 31.0 01/21/2012 [facility] HEMATOLOGY MPV 8.2 7.4 - 10.4 01/21/2012 [facility] HEMATOLOGY Hgb 13.4 14.0 - 18.0 01/21/2012 LOW [facility] HEMATOLOGY RBC 4.30 4.70 - 6.10 01/21/2012 L[facility] HEMATOLOGY WBC 10.2 3.7 - 10.4 01/21/2012 [facility] HEMATOLOGY Basophils # 0.1 0.0 - 0.2 01/21/2012 [facility] HEMATOLOGY Eosinophils # 0.1 0.0 - 0.5 01/21/2012 [facility] HEMATOLOGY Monocytes # 0.6 0.0 - 0.8 01/21/2012 [facility] HEMATOLOGY Lymphocytes 14.9 20.0 - 40.0 01/21/2012 L[facility] HEMATOLOGY Segs 77.7 45.0 - 75.0 01/21/2012 [facility] HEMATOLOGY Lymphocytes # 1.5 1.0 - 5.5 01/21/2012 [facility] HEMATOLOGY Segs-Bands # 8.0 1.5 - 8.1 01/21/2012 Normal [facility] HEMATOLOGY Basophils 0.6 0.0 - 1.0 01/21/2012 Normal [facility] HEMATOLOGY Eosinophils 1.2 0.0 - 4.0 01/21/2012 Normal [facility] HEMATOLOGY Monocytes 5.6 2.0 - 12.0 01/21/2012 [facility] URINALYSIS UA Urobilinogen 0.1 - 1.0 01/21/2012 [facility] URINALYSIS UA Color Ltyellow 01/21/2012 [facility] URINALYSIS UA RBC 42 0 - 2 01/21/2012 [facility] URINALYSIS UA WBC 91 0 - 5 01/21/2012 [facility] URINALYSIS UA Bacteria Few / HPF *NA* (01/21/2012 06:07:00) None S een 01/21/2012 [facility] URINALYSIS UA Turbidity Sligh t *ABN* (01/21/2012 06:07:00) Clear 01/21/2012 ABN [facility] URINALYSIS UA Nitrite Negat cedric (01/21/2012 06:07:00) Negati ve 01/21/2012 [facility] URINALYSIS UA Blood Moder ate *ABN* (01/21/2012 06:07:00) Negati ve 01/21/2012 [facility] URINALYSIS UA Bili Negat cedric *NA* (01/21/2012 06:07:00) Negati ve 01/21/2012 [facility] URINALYSIS UA Ketones Trace mg/dL *ABN* (01/21/2012 06:07:00) Negati ve 01/21/2012 [facility] URINALYSIS UA Sq Epi Occas ional /LPF *NA* (01/21/2012 06:07:00) Few 01/21/2012 [facility] URINALYSIS UA Leuk Est Moder ate *ABN* (01/21/2012 06:07:00) Negati ve 01/21/2012 [facility] URINALYSIS UA Spec Grav 1.020 <=1.030 01/21/2012 [facility] URINALYSIS UA Glucose 500 m g/dL *ABN* (01/21/2012 06:07:00) Negati ve 01/21/2012 [facility] URINALYSIS UA Protein 30 mg /dL *ABN* (01/21/2012 06:07:00) Negati ve 01/21/2012 ABN [facility] URINALYSIS UA pH 5.0 5.0 - 8.0 01/21/2012 Normal [facility] Pathology Reports No Data Provided for This Section Diagnostic Reports Report Value Date Source Brain wo contrast MRI PROCEDUR E INFORMATION: Exam: MR Head Without Contrast Exam date and time: 10/14/2019 1:43 PM Age: 68 years old Clinical indication: Weakness, extremity; Bilateral; Additional info: /rule out CVA TECHNIQUE: Imaging protocol: MR of the head without contrast. COMPARISON: BRAIN WO CONTRAST CT 10/13/2019 10:11 PM FINDINGS: Brain: Diffuse cerebral atrophy is noted, appropiate for age. A few scattered subcentimeter T2/FLAIR hyperintense foci are noted in the supratentorial white matter, likely representing normal aging white matter changes. Ventricles: Normal. No ventriculomegaly. Bones/joints: Unremarkable. Sinuses: Normal as visualized. No acute sinusitis. Mastoid air cells: Normal as visualized. No mastoid effusion. Orbits: Unremarkable. Soft tissues: Unremarkable. IMPRESSION: No acute/subacute stroke, hemorrhage, or mass. Alexis Che MD On 10/14/2019 14:17:06; [id number] 10/14/2019 [facility] Brain/Neck STROKE CTA Radiatio n Dose CTDIVOL = 0 (mGy): DLP = 1873.05 (mGy-cm) PROCEDURE INFORMATION: Exam: CT Angiography Head With Contrast Exam date and time: 10/14/2019 2:04 AM Age: 68 years old Clinical indication: Weakness; Additional info: /ataxia and left leg weakness TECHNIQUE: Imaging protocol: Computed tomography angiography of the head with intravenous contrast. 3D rendering (Not supervised by radiolog ist): MIP and/or 3D reconstructed images were created by the technologist. Radiation optimization: All CT scans at this facility use at least one of these dose optimization techniques: automated exposure control; mA and/or kV adjustment per patient size (includes targeted exams where dose is matched to clinical indication); or iterative reconstruction. Contrast material: OMNI; Contrast volume: 100 ml; Contrast route: INTRAVENOUS (IV); COMPARISON: BRAIN WO CONTRAST CT 10/13/2019 10:11 PM RADIATION DOSE METRICS: Total DLP (mGy-cm): 1873.05 FINDINGS: CT BRAIN: There is no evidence of acute vascular insults, hemorrhage, space-occupying lesions, hydrocephalus, midline shift, or extra-axial fluid collections. The calvarium is intact. CTA NECK: Measurement of potential stenosis is performed according to NASCET criteria. There is typical configuration of the aortic arch. There is no stenosis at the origins of the supra-aortic great vessels. The right common carotid artery, carotid bifurcation, and internal carotid artery are patent. There is no measurable stenosis of the right ICA. The left common carotid artery, carotid bifurcation, and internal carotid artery are patent. There is no measurable stenosis of the left ICA. The vertebral arteries are patent. CTA BRAIN: The bilateral internal carotid arteries are patent. The bilateral anterior and middle cerebral arteries are patent. The vertebrobasilar arteries and bilateral posterior cerebral arteries are patent. No aneurysms are identified. IMPRESSION: CT BRAIN 1. No acute intracranial abnormalities a re visualized. CTA NECK 2. No occlusion or stenosis of the bilat eral extracranial internal carotid arteries. 3. The bilateral vertebral arteries are patent. CTA BRAIN 4. No occlusion or appreciably significa nt stenosis of the [place]. 5. No cerebral aneurysms are identified. PROCEDURE INFORMATION: Exam: CT Angiography Neck With Contrast Exam date and time: 10/14/2019 2:04 AM Age: 68 years old Clinical indication: Weakness; Additional info: /ataxia and left leg weakness TECHNIQUE: Imaging protocol: Computed tomography angiography of the neck with intravenous contrast. 3D rendering (Not supervised by radiolog ist): MIP and/or 3D reconstructed images were created by the technologist. Radiation optimization: All CT scans at this facility use at least one of these dose optimization techniques: automated exposure control; mA and/or kV adjustment per patient size (includes targeted exams where dose is matched to clinical indication); or iterative reconstruction. Contrast material: OMNI; Contrast volume: 100 ml; Contrast route: INTRAVENOUS (IV); COMPARISON: BRAIN WO CONTRAST CT 10/13/2019 10:11 PM RADIATION DOSE METRICS: Total DLP (mGy-cm): 1873.05 FINDINGS: CT BRAIN: There is no evidence of acute vascular insults, hemorrhage, space-occupying lesions, hydrocephalus, midline shift, or extra-axial fluid collections. The calvarium is intact. CTA NECK: Measurement of potential stenosis is performed according to NASCET criteria. There is typical configuration of the aortic arch. There is no stenosis at the origins of the supra-aortic great vessels. The right common carotid artery, carotid bifurcation, and internal carotid artery are patent. There is no measurable stenosis of the right ICA. The left common carotid artery, carotid bifurcation, and internal carotid artery are patent. There is no measurable stenosis of the left ICA. The vertebral arteries are patent. CTA BRAIN: The bilateral internal carotid arteries are patent. The bilateral anterior and middle cerebral arteries are patent. The vertebrobasilar arteries and bilateral posterior cerebral arteries are patent. No aneurysms are identified. IMPRESSION: CT BRAIN 1. No acute intracranial abnormalities a re visualized. CTA NECK 2. No occlusion or stenosis of the bilat eral extracranial internal carotid arteries. 3. The bilateral vertebral arteries are patent. CTA BRAIN 4. No occlusion or appreciably significa nt stenosis of the [place]. 5. No cerebral aneurysms are identified. REFERENCES: NASCET CRITERIA. The degree of internal carotid artery stenosis is based on NASCET criteria. Normal is no stenosis. Mild is less than 50% stenosis. Moderate is 50-69% stenosis. Severe is 70% to 99% stenosis. Total occlusion is no detectable patent lumen. Everett Mo MD On 10/14/2019 02:47:43; [id number] 10/14/2019 [facility] wo contrast CT Radiation Dose CTDIVOL = 0 (mGy): DLP = 982.82 (mGy-cm) PROCEDURE INFORMATION: Exam: CT Head Without Contrast Exam date and time: 10/13/2019 10:11 PM Age: 68 years old Clinical indication: Weakness, extremity; Additional info: Weakness/weakness TECHNIQUE: Imaging protocol: Computed tomography of the head without contrast. Radiation optimization: All CT scans at this facility use at least one of these dose optimization techniques: automated exposure control; mA and/or kV adjustment per patient size (includes targeted exams where dose is matched to clinical indication); or iterative reconstruction. COMPARISON: No relevant prior studies available. RADIATION DOSE METRICS: Total DLP (mGy-cm): 982.82 FINDINGS: Brain: No acute territorial infarct or intracranial hemorrhage. No mass effect or midline shift. Atherosclerotic calcification of the distal internal carotid and vertebral arteries. Ventricles: No ventriculomegaly. Bones/joints: No acute displaced fracture. Sinuses: Mild mucoperiosteal thickening in the ethmoid sinus. No fluid levels. Mastoid air cells: Visualized mastoid air cells are well aerated. Soft tissues: Unremarkable. IMPRESSION: No acute territorial infarct or intracranial hemorrhage detected. COMMENTS: If there is further clinical concern for intracranial pathology, MRI of the brain may be performed for further assessment. Milind aJy MD On 10/13/2019 22:23:56; [id number] 10/13/2019 [facility] Chest 1view DX PROCEDURE INFOR MATION: Exam: XR Chest, 1 View Exam date and time: 10/13/2019 10:16 PM Age: 68 years old Clinical indication: Pain; Additional info: Chest pain/weakness TECHNIQUE: Imaging protocol: XR of the chest Views: 1 view. COMPARISON: No relevant prior studies available. FINDINGS: Lungs: No focal lung consolidation. Pleural space: No pleural effusion or pneumothorax. Heart/Mediastinum: Cardiac and mediastinal contours within normal limits. Bones/joints: Unremarkable. IMPRESSION: No radiographic evidence of acute cardiopulmonary disease. Briana Ashford MD On 10/13/2019 22:42:12; [id number] 10/13/2019 [facility] Shoulder series DX Study: Rig t, Shoulder series DX, 3 views COMPARISON: None. HISTORY: - M25.519 Pain in unspecified shoulder. FINDINGS: No acute fracture or subluxation is seen. Mild acromioclavicular osteoarthritis is seen. Mild glenohumeral osteoarthritis is seen with bony spurring along the inferior aspect of the glenoid. No focal soft tissue abnormality is seen. IMPRESSION: No acute osseous abnormality. Mild osteoarthritis of the acromioclavicular and glenohumeral joints. 06/10/2018 [facility] [address] [facility] [address] IMPRESSION: (Co ntinued...) 2. Nonobstructive 2 mm right nephrolith. SL: 14 CT abdomen and pelvis without IV contrast, Aug 23, 2014 10:45:53 AM CLINICAL HISTORY: Abdominal pain, acute ; right back and flank pain for one week; history kidney stones TECHNIQUE: Routine 5mm thick axial images of the abdomen and pelvis were obtained without any contrast. Coronal and sagittal reformations were created. COMPARISON: Abdominopelvic CT 12/23/2013 FINDINGS: Visualized lung bases are clear. The study is limited without the use of IV contrast for evaluation of the visceral parenchymal organs. However the partially visualized liver and spleen, pancreas, and adrenal glands are grossly normal. 4.5 cm dystrophically rim calcified splenic cyst is present anteriorly. Right nonobstructive 2 mm nephrolith is present. Minimal bilateral perinephric stranding persists. Otherwise, kidneys and ureters are grossly normal. Partially distended bladder is unremarkable. Gallbladder is present. The stomach, small intestine, and colon are grossly unremarkable. Appendix is intrinsically short, or there is an appendiceal stump status post possible appendectomy. No free air or free fluid is present. No mesenteric or retroperitoneal lymphadenopathy is present. Bones demonstrate bilateral sacroiliac joint fusion. IMPRESSION: No acute abnormality of the abdomen or pelvis. SL: 14 08/23/2014 [facility] Abdomen/Pelvis w IV contrast CT CT abdomen and pelvis with IV contrast, Dec 23, 2013 07:09:00 PM CLINICAL HISTORY: Abdominal pain, acute ; Suspect diverticulitis TECHNIQUE: Routine 5 mm thick axial images of the abdomen and pelvis are obtained with IV contrast. Routine 5 minute delayed images were obtained. Coronal and sagittal reformations were created. COMPARISON: Abdominopelvic CT January 2012 FINDINGS: Visualized lung bases are clear. Diffuse fatty infiltration of liver is present. 4.5 cm rim calcified into a splenic cyst is stable. Pancreas, adrenal glands, and kidneys are normal. The ureters are unremarkable. Partially distended bladder is unremarkable. Gallbladder is present. Small sliding hiatal hernia suggested. Otherwise, the stomach, small intestine, and colon are normal. Appendix is absent. No free air or free fluid is visualized within the abdominal cavity. No mesenteric or retroperitoneal lymphadenopathy is present. Bones are unremarkable. IMPRESSION: 1. Diffuse fatty infiltration of liver. 2. Small sliding hiatal hernia. SL: 14 12/23/2013 [facility] Abdomen RUQ US ABDOMEN RUQ US HX: Abdominal pain, acute COMPARISON: 01/20/2011 FINDINGS: Examination is limited by patient size and bowel gas. The gallbladder is within normal limits. The liver appears echogenic, consistent with diffuse fatty infiltration. Views of the liver are limited. The pancreas is not well-seen due to overlying bowel gas. Views of the right kidney reveal no hydronephrosis or perinephric edema. The right kidney measures 10.5 x 5.1 x 5.7 cm. The common hepatic duct is 5 mm in diameter which is within normal limits. The IVC is not visualized due to bowel gas. IMPRESSION: 1. Exam limited by bowel gas. 2. Fatty liver. 3. Gallbladder and common duct within no rmal limits. 4. No gross abnormality the right kidney . SL: 12 12/23/2013 [facility] Knee AP and lateral Mild trico mpartmental osteoarthritis is present with mild joint space narrowing, subchondral sclerosis, and minimal osteophytes. Minimal volume suprapatellar bursal effusion is also present. No acute fracture is seen. IMPRESSION: 1. Mild tricompartmental osteoarthritis. [facility] wo contrast MRI EXAMINATI ON: MRI of the left knee without contrast. HISTORY: Pain. COMPARISON: Plain films of the left knee from 07/24/2012. TECHNIQUE: Multiplanar, multisequence magnetic resonance imaging of the left knee was performed without administration of intravenous gadolinium contrast utilizing a 1.5 Shelly MRI. FINDINGS: Intercondylar notch: The ACL and PCL are intact. Medial compartment: Horizontal flap tear of the medial meniscus posterior body and posterior horn is seen, extending into the inferior articular surface. No high-grade chondral defect is present. The MCL is intact. Lateral compartment: No meniscal tear or chondral defect is seen. The LCL complex is intact. Patellofemoral compartment: Grade II chondromalacia of the lateral patellar facet is seen. Medial plica is noted. Extensor mechanism: The quadriceps and patellar tendons are intact. Other findings: Small joint effusion is seen. Miniscule Min's cyst is present. IMPRESSION: 1. Horizontal flap tear of the medial me niscus posterior body and posterior horn, extending into the inferior articular surface. 2. Grade II chondromalacia of the latera l patellar facet. 3. Small joint effusion and miniscule Ba ker's cyst. 08/02/2012 [facility] Knee AP and lateral History: P ain osteoarthritis. Comparison: None. Findings: There is very minimal patellar osteophytes, otherwise, the visualized osseous structures are unremarkable. There is a small suprapatellar joint effusion. Impression: 1. Minimal patellar osteophytosis and sm all suprapatellar joint effusion. If there is concern for internal derangement, a MRI study may be helpful. 07/24/2012 [facility] Consultation Notes No Data Provided for This Section Discharge Summaries No Data Provided for This Section History and Physicals No Data Provided for This Section Vital Signs Vital Sign Value Date Comments Source Temperature Oral (F) 98.5 F 10/14/2019 [facility] Heart Rate 96 10/14/2019 [facility] Respitory Rate 18 10/14/2019 [facility] Systolic (mm Hg) 149 10/14/2019 [facility] Diastolic (mm Hg) 79 10/14/2019 [facility] Temperature Oral (F) 98.1 F 10/14/2019 [facility] Heart Rate 91 10/14/2019 [facility] Respitory Rate 20 10/14/2019 [facility] Systolic (mm Hg) 141 10/14/2019 [facility] Diastolic (mm Hg) 87 10/14/2019 [facility] Temperature Oral (F) 98.1 F 10/14/2019 [facility] Heart Rate 81 10/14/2019 [facility] Respitory Rate 18 10/14/2019 [facility] Systolic (mm Hg) 127 10/14/2019 [facility] Diastolic (mm Hg) 80 10/14/2019 [facility] Height 175.26 cm 10/14/2019 [facility] Weight 104.545 10/14/2019 [facility] BMI Calculated 34.04 10/14/2019 [facility] Height 175.26 cm 10/14/2019 [facility] BMI Calculated 34.04 10/14/2019 [facility] Weight 104.545 10/14/2019 [facility] Systolic (mm Hg) 126 09/08/2016 [facility] Diastolic (mm Hg) 86 09/08/2016 [facility] Heart Rate 88 09/08/2016 [facility] Respitory Rate 20 09/08/2016 [facility] Temperature Oral (F) 97.9 F 09/08/2016 [facility] Temperature Oral (F) 97.7 F 09/08/2016 [facility] Heart Rate 74 09/08/2016 [facility] Respitory Rate 20 09/08/2016 [facility] Systolic (mm Hg) 130 09/08/2016 [facility] Diastolic (mm Hg) 75 09/08/2016 [facility] Respitory Rate 18 09/08/2016 [facility] Heart Rate 85 09/08/2016 [facility] Temperature Oral (F) 97.7 F 09/08/2016 [facility] Systolic (mm Hg) 114 09/08/2016 [facility] Diastolic (mm Hg) 66 09/08/2016 [facility] BMI Calculated 37 09/07/2016 [facility] Height 175.26 cm 09/07/2016 [facility] Weight 113.636 09/07/2016 [facility] Weight 113.636 09/07/2016 [facility] BMI Calculated 37 09/07/2016 [facility] Height 175.26 cm 09/07/2016 [facility] Temperature Oral (F) 98 F 09/04/2016 [facility] Respitory Rate 16 09/04/2016 [facility] Heart Rate 81 09/04/2016 [facility] Systolic (mm Hg) 156 09/04/2016 [facility] Diastolic (mm Hg) 79 09/04/2016 [facility] Heart Rate 79 09/04/2016 [facility] Respitory Rate 16 09/04/2016 [facility] Systolic (mm Hg) 162 09/04/2016 [facility] Diastolic (mm Hg) 87 09/04/2016 [facility] Height 175.26 cm 09/04/2016 [facility] Weight 113.636 09/04/2016 [facility] BMI Calculated 37 09/04/2016 [facility] Respitory Rate 18 09/04/2016 [facility] Heart Rate 72 09/04/2016 [facility] Systolic (mm Hg) 170 09/04/2016 [facility] Diastolic (mm Hg) 97 09/04/2016 [facility] Temperature Oral (F) 98.1 F 09/04/2016 [facility] Weight 109.091 04/25/2015 [facility] BMI Calculated 35.52 04/25/2015 [facility] Respitory Rate 18 04/25/2015 [facility] Temperature Oral (F) 98.3 F 04/25/2015 [facility] Systolic (mm Hg) 148 04/25/2015 [facility] Diastolic (mm Hg) 93 04/25/2015 [facility] Heart Rate 89 04/25/2015 [facility] Height 175.26 cm 04/25/2015 [facility] Temperature Oral (F) 97.4 F 08/23/2014 [facility] Heart Rate 79 08/23/2014 [facility] Respitory Rate 18 08/23/2014 [facility] Systolic (mm Hg) 136 08/23/2014 [facility] Diastolic (mm Hg) 87 08/23/2014 [facility] Weight 106.364 08/23/2014 [facility] Temperature Oral (F) 97.6 F 08/23/2014 [facility] Heart Rate 90 08/23/2014 [facility] Respitory Rate 16 08/23/2014 [facility] Systolic (mm Hg) 154 08/23/2014 [facility] Diastolic (mm Hg) 89 08/23/2014 [facility] BMI Calculated 34.78 12/23/2013 [facility] Weight 106.818 12/23/2013 [facility] Height 175.26 cm 12/23/2013 [facility] Respitory Rate 18 12/23/2013 [facility] Temperature Oral (F) 98.0 F 12/23/2013 [facility] Heart Rate 98 12/23/2013 [facility] Diastolic (mm Hg) 94 12/23/2013 [facility] Systolic (mm Hg) 154 12/23/2013 [facility] Height 175.26 cm 01/21/2012 [facility] Weight 111.364 01/21/2012 [facility] Encounters Location Location Details Encounter Type Encounter Number Reason For Visit Attending Provider ADM Date DC Date Status Source [facility] Emergency [id number] CHUCKY KRIS 01/21/2012 01/21/2012 Discharged [facility] [place] [facility] [id number] _[id number] Kirsty Santana 04/11/2013 04/12/2013 [facility] [id number] Hood Corea 12/23/2013 12/24/2013 [facility] [id number] Margy Davis 08/23/2014 08/23/2014 [facility] [id number] Tata Decker 04/25/2015 04/25/2015 [facility] Emergency [id number] Josh Dias 09/04/2016 09/04/2016 [facility] Inpatient [id number] 09/07/2016 09/08/2016 [facility] [place] [facility] [id number] Kia Chito 06/10/2018 06/11/2018 [facility] Observation [id number] Shannan Sanchez 10/14/2019 10/15/2019 [facility] Procedures Procedure Code Date Perfomer Comments Source [facility] [id number] [facility] Carpal tunnel release<sup>1</sup> [id number] left [facility]olecyst[facility] [id number] [facility] Hand repair<sup>2</sup> [id number] left [facility] Hung,[facility] Knee reoperations<sup>3</sup> [id number] right [facility] Hung,[facility] Assessment and Plan Assessment and Plan Date Source Extracted from:Title: History and Physic al Author: Shannan Sanchez MD Date: 10/14/19 68-year-old M with PMH of obesity, DM2, HTNand hypothyroidismadmitted for bilateral lower extremity weakness and uncontrolled hypertension 1.Bilateral leg weakness(R29.898) On exam only slight lower extremity weakness, howeverpatient with ataxic gait drifting towards his left side. Head CT, CTA head and neck without acute intracranial findings. --CVA MPP initiated --Follow-up TSH --Aspirin 81 mg daily --Brain MRI to rule out posterior CVA --Neurology consult 2.Uncontrolled hypertension(I10) Blood pressure 160/101 --Continue lisinopril --Hydralazine 10 mg p.o. every 6 hours P RN SBP greater than 165 or DBP greater than 100 3.Type 2 diabetes mellitus with hyperglycemia(E11.65) Blood [id number]. Patient on Levemiroutpatient --Continue Levemir --Insulin sliding scale with Accu-Cheks before meals and at bedtime 4.Hypothyroidism(E03.9) --Continue Synthroid 175 mcg daily, foll ow-up TSH/free T4 and titrate if indicated SCDs Home when stable 10/15/2019 [facility] Extracted from:Title: Discharge Summary * Author: Rigo Bocanegra MD Date: 09/08/16 Discharge Information Discharge Summary Information pt admitted with persistent hypoglycemia from glimepiride use. started on D5W and diet encouraged. blood sugars now stable and pt ready for discharge. will hold oral antihyperglycemics, continue insulin in home and follow up with PCP sunday. pt also had slightly elevated CPK, early rhabdo possibly but no PEPE or electrolyte imbalance. stable kidney function to follow up with PCP as well. Discharge Plan Discharge Summary Plan Discharge Status: improved. Discharge instructions given: to patient. Discharge disposition: discharge to home self care. Prescriptions: continue same medications, stop glimepiride. Extracted from:Title: Progress Note * Author: Rigo Bocanegra MD Date: 09/08/16 Impression and Plan 1-persistent hypoglycemia - BS 235 now, will administer insulin, pt tolerating diet, can resume adjusted insulin dose in home but discontinue glimepiride. pt has appt to see PCP who manages insulin in 3 days, Sunday. 2-elevated CPK - trending down, no PEPE, no hx CKD, electrolytes very stable, follow up PCP with labs 3-DM2- adjust insulin dose, stop glimepi ride 4-HTN - BP stable, continue home regimen . Extracted from:Title: General Admission H&P * Author: Rigo Bocanegra MD Date: 09/07/16 Impression and Plan 1-persistent hypoglycemia - pt on sulfon ylurea at home, didnt administer insulin last night due to decreased diet yesterday. Pt uses lantus and humalin twice daily likely due to job. start pt on D5W IV while effects of oral antihyperglycemics persist. monitor blood sugars closely. 2-elevated CPK - consider early rhabdo a lthough usually well above 1500 to cause PEPE, no chest pain, trop neg, also consider statin induced as well although LFTs normal and pt without myalgias. continue IVFs and monitor CPK trend. pt without PEPE and is nonoliguric. will check BMP, Mg, Phos, urine lytes and follow 3-DM2- on insulin and orals at home, hol d all insulin and continue D5W and encourage diet 4-HTN - elevated BP at moment, continue pt home regimen, pt missed dose today. 5-DVT prophylaxis- pt low risk, expected stay <2 nights, pt ambulating without difficulty 09/08/2016 [facility] Plan of Care No Data Provided for This Section Social History Social History Date Source Social History TypeResponse Substance Abuse Use: None. Alcohol Never Smoking Status Never smoker; Concerns about tobacco use in household: No; Exposure to Tobacco Smoke None; Cigarette Smoking Last 365 Days No; Reg Smoking Cessation Counseling No 09/07/2016 [facility] Social History TypeResponse Substance Abuse Use: None. Alcohol Never Smoking Status Never smoker; Concerns about tobacco use in household: No; Exposure to Tobacco Smoke None; Cigarette Smoking Last 365 Days No; Reg Smoking Cessation Counseling No entered on: 09/07/16 09/07/2016 [facility] Social History TypeResponse Alcohol Never Substance Abuse Use: None. Smoking Status Never smoker; Concerns about tobacco use in household: No; Exposure to Tobacco Smoke None; Cigarette Smoking Last 365 Days No; Reg Smoking Cessation Counseling No entered on: 10/14/19 09/07/2016 [facility] Family History No Data Provided for This Section Advance Directives No Data Provided for This Section Functional Status No Data Provided for This Section
--- OUTSIDE RECORDS SUMMARY | 2020-01-22 11:03 | XMS REPORT | Continuity of Care Document ---
Author Author [facility] t Organization [facility] Address [address] [place] [address] Phone Unavailable Care Team Providers Care Food Porter Name Role Phone MALORIE ECHOLS Attphys Unavailable Davion Sanchez Attphys Sheryl Dale Attphys Vega Dias Attphys Tamiko Deckeri Attphys Jared Davis Attphys Jerod Corea Attphys Kirsty Santana Attphys Davion Sanchez Admphys Problems Condition Name Condition Details Condition Category Status Onset Date Resolution Date Last Treatment Date Treating Clinician Comments Source ACUTE ATAXIA, BRAIN TIA ACUT E ATAXIA, BRAIN TIA Active 10/13/2019 [facility] Diagnosis Active 2019-10-13 00:00:00 2019-10-15 07:23:00 Raheem Mathews LEG PAIN LEG PAIN Active 10/13/2019 [facility] Diagnosis Active 2019-10-13 00:00:00 2019-10-13 22:48:00 Raheem Mathews LOW BS LOW BS Active 09/07/2016 [facility] Diagnosis Active 2016-09-07 00:00:00 2016-09-07 09:13:00 Raheem Mathews HYPOGLYCEMIA; RHABDOMYOLYSIS; DIZZINESS HYPOGLYCEMIA; RHABDOMYOLYSIS; DIZZINESS Active 09/07/2016 [facility] Diagnosis Active 2016-09-07 00:00:00 2016-09-08 10:50:00 Raheem Mathews NECK PAIN NECK PAIN Active 09/04/2016 [facility] Diagnosis Active 2016-09-04 00:00:00 2016-09-04 05:27:00 [facility] TOE PAIN TOE PAIN Active 04/25/2015 [facility] Active 2015-04-25 00:00:00 2015-04-25 14:38:00 Raheem Mathews LOWER BACK PAIN LOWE R BACK PAIN Active 08/23/2014 [facility] Active 2014-08-23 00:00:00 2014-08-23 09:58:00 [facility] ABD PAIN ABD PAIN Active 12/23/2013 [facility] Diagnosis Active 2013-12-23 09:00:00 2013-12-23 17:51:00 [facility] ABDOMINAL PAIN ABDO JACE PAIN Active 01/21/2012 [facility] Active 2012-01-21 00:00:00 2012-01-21 08:13:00 Raheem Mathews Final: Unspecified Essential Hypertension Final: Unspecified Essential Hypertension 04/30/2013 OPIJanie Leonard Problem 2013-04-30 15:47:50 Raheem Mathews Final: Osteoarthrosis, Unspecified Wheth er Generalized or Localized, Involving Lower Leg Final: Osteoarth rosis, Unspecified Whether Generalized or Localized, Involving Lower Leg 04/30/2013 OPIJanie Leonard Problem 2013-04-30 15:47:50 Raheem Mathews Diabetes mellitus (disorder) D iabetes mellitus (disorder) Res[facility] 2019-10-16 22:37:54 [facility] trinidad Mathews Hypertensive disorder, systemic arterial (disorder) Hypertensive disorder, systemic arterial (disorder) Resolved Problem 10/16/2019 [facility] Res olved 2019-10-16 22:37:54 Raheem fontenot Hypothyroidism (disorder) Hypo thyroidism (disorder) Active Problem 10/16/2019 [facility] Problem Active 2019-10-16 22:3 7:54 [facility] Diabetes mellitus type 2 (disorder) Diabetes mellitus type 2 (disorder) Active Problem 10/16/2019 [facility] Problem Active 2019-10-16 22:37:54 Raheem Mathews METABOLIC ENCEPHALOPATHY META BOLIC ENCEPHALOPATHY Active [facility] Diagnosis Active 2016-09-08 10:50:00 Raheem Mathews RHABDOMYOLYSIS RHAB DOMYOLYSIS Active [facility] Diagnosis Active 2016-09-08 10:50:00 Ct morieduin Mathews DIZZINESS AND GIDDINESS DIZZ INESS AND GIDDINESS Active [facility] Diagnosis Active 2016-09-08 10:50:00 [facility] OTHER LACK OF COORDINATION OTH ER LACK OF COORDINATION Active [facility] Diagnosis Active 2019-10-15 07:23:00 Raheem Mathews TRANSIENT CEREBRAL ISCHEMIC ATTACK, UNSP TRANSIENT CEREBRAL ISCHEMIC ATTACK, UNSP Active [facility] Diagnosis Active 2019-10-15 07:23:00 [facility] Other specified diseases of jaws Other specified diseases of jaws 09/04/2016 09/07/2016 [facility] Problem 2016-09-04 05:00:00 2016-09-07 01:24:44 2016-09-07 01:24:44 [facility] Essential (primary) hypertension Essential (primary) hypertension 09/04/2016 09/07/2016 [facility] Problem 2 05:00:00 2016-09-07 01:24:44 2016-09-07 01:24:44 [facility] Dis[facility] Diagnosis: Ingrown toenail Discharge Diagnosis: Ingrown toenail 04/25/2015 04/28/2015 [facility] Problem 2015-04-25 06:00:00 2015-04-28 01:34:59 2015-04-28 01:34:59 [facility] Discharge Diagnosis: Abdominal pain, acute Discharge Diagnosis: Abdominal pain, acute 08/23/2014 08/26/2014 [facility] Problem 2014-08-23 05:00:00 2014-08-26 00:40:36 2014-08-26 00:40:36 [facility] Discharge Diagnosis: Abdominal pain Discharge Diagnosis: Abdominal pain 12/23/2013 12/26/2013 [facility] Problem 2013-12-23 06:00:00 2013-12-26 06:19:45 2013-12-26 06:19:45 [facility] Discharge Diagnosis: Acute gastroenteritis Discharge Diagnosis: Acute gastroenteritis 12/23/2013 12/26/2013 [facility] Problem 2013-12-23 06:00:00 2013-12-26 06:19:45 2013-12-26 06:19:45 [facility] Final: 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, Type I [juvenile Type], Uncontrolled Final: 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, Type I [juvenile Type], Uncontrolled 04/22/2013 04/30/2013 [place] [place] Problem 2013-04-22 05:09:44 2013-04-30 15:4 7:50 2013-04-30 15:47:50 [facility] Allergies, Adverse Reactions, Alerts Allergy Name Allergy Type Status Severity Reaction(s) Onset Date Inacti ve Date Treating Clinician Comments Source No Known Medication Allergies No Known Medication Allergies Active Raheem Mathews Social History Social Habit Start Date Stop Date Quantity Comments Source Social History 2016-09-07 20:26:33 2016-09-07 20:26:33 [facility] Medications Ordered Medication Name Filled Medication Name Start Date Stop Da te Current Medication? Ordering Clinician Indication Dosage Frequency Signature (SIG) Comments Components Source Fabianoemir 2019-10-15 02:00:00 No 40 unit, Route: SUB-Q, Bedtime, Dosing Weight 104.545, kg, Start date: 10/14/19 21:00:00 CDT, Duration: 30 day, Stop date: 11/12/19 21:00:00 CDT Chelly Mathews insulin glargine 2019-10-15 02:00:00 No Notes: (Same as: Ave) Do not hold insulin without contacting prescriber WASTE: F/P - Black; E - Municipal Trash Bin "single patient use only" Stable for 28 days at room temperature Expires in days from Date Raheem Mathews simvastatin 40 mg oral tablet 2019-10-14 21:36:00 Yes 40 mg = 1 tab, PO, Bedtime, # 30 tab, 0 Refill(s), Pharmacy: [facility]/pharmacy #[id number], 175.26, cm, 10/14/19 5:37:00 CDT, Height, 104.545, kg, 10/14/19 5:37:00 CDT, Weight Raheem Mathews Walker 2019-10-14 21:35:00 Yes 1 ea, MISC, Daily, # 1 ea, 0 Refill(s), Pharmacy: [facility]/pharmacy #[id number], 175.26, cm, 10/14/19 5:37:00 CDT, Height, 104.545, kg, 10/14/19 5:37:00 CDT, Weight [facility] Bedside Toilet/Commode Misc/Other 2019-10-14 21:35:00 Yes 1 ea, MISC, ONCE, Will need a letter of medical necessity for Medicare/insurance reimbursement, # 1 ea, 0 Refill(s), Pharmacy: [facility]/pharmacy #[id number], 175.26, cm, 10/14/19 5:37:00 CDT, Height, 104.545, kg, 10/14/19 5:37:00 CDT, Weight [facility] Valium 2019-10-14 16:38:00 No Notes: (Same as: Valium) [facility] Aspirin 81 MG Enteric Coated Tablet 2019-10-14 14:00:00 No Notes: Do not crush or chew. (Same As: Ecotrin) [facility] Saline Flush 0.9% 2019-10-14 14:00:00 No Notes: (Same as: BD Posiflush) [facility] Lisinopril 2019-10-14 14:00:00 No Notes: (Same as: Prinivil, Zestril) [facility] Synthroid 2019-10-14 11:30:00 No Notes: Take 1 hour before or 2 hours after meal; Enteral feeds may interefere with the absorption of this medication. (Same as: Levothroid, Synthroid) [facility] Hydralazine 2019-10-14 10:23:00 No Notes: (Same as: Apresoline) May interfere w/enteral feedings. Take With Food [facility] Dextrose 50% Syringe (D50W) 2019-10-14 10:19:00 No 12.5 gm, 25 mL, Route: IVP, Drug Form: INJ, Dosing Weight 104.545, kg, PRN, PRN Blood Glucose Results, Start date: 10/14/19 5:19:00 CDT, Duration: 30 day, Stop date: 11/13/19 5:18:00 CDT, 0 [facility] Glucagon 2019-10-14 10:19:00 No 1 mg, Route: IM, Drug form: PDR/INJ, PRN, Dosing Weight 104.545, kg, PRN Blood Glucose Results, Start date: 10/14/19 5:19:00 CDT, Duration: 30 day, Stop date: 11/13/19 5:18:00 CDT, 0 [facility] Insulin Lispro 2019-10-14 10:19:00 No Notes: (Same as: Humalog) Roll in palms of hands gently; Do not shake vigorously. WASTE: F/P - Black; E - Municipal Trash Bin Stable for 28 days at room temperature. Expires in days from Date Raheem yousif Saline Flush 0.9% 2019-10-14 08:26:00 No Notes: (Same as: BD Posiflush) Raheem Mathews Aspirin 81 MG Chewable Tablet 2019-10-14 06:31:00 No Notes: Take with food. Raheem Mathews insulin aspart 2016-09-08 18:00:00 No Notes: Roll in palms of hands gently; Do not shake vigorously. (Same as: NovoLOG) "single patient use only" WASTE: F/P - Black; E - Municipal Trash Bin Stable for 28 days at room temperature. Expires in days from Date Raheem Mathews Humalog 2016-09-08 16:33:00 No 5 unit, Route: SUB-Q, ONCE, Dosing Weight 113.636, kg, Start date: 09/08/16 11:33:00 CDT, Stop date: 09/08/16 11:33:00 CDT Raheem Mathews simvastatin 40 mg oral tablet 2016-09-07 23:43:00 Yes 40 mg = 1 tab, PO, Bedtime, 0 Refill(s) Raheem Peng n Insulin Glargine 100 UNT/ML Injectable Solution [Lantus] 2016-09-07 23:43:00 Yes 75 unit, SUB-Q, Bedtime, # 10 mL , 3 Refill(s) Raheem Mathews lisinopril 20 mg oral tablet 2016-09-07 23:43:00 Yes 20 mg = 1 tab, PO, BID, 0 Refill(s) Raheem Mathews Humalog 2016-09-07 23:43:00 Yes See Instructions, 1 unit SUB-Q TID- Before Meals, 0 Refill(s) Raheem Oleamerrill porter levothyroxine 175 mcg (0.175 mg) oral tablet 2016-09-07 23:43:00 Yes 175 microgram = 1 tab, PO, Daily, # 30 tab, 0 Refill(s) Raheem Oleaann glimepiride 2016-09-07 23:43:00 No 4 mg, PO , BID, 0 Refill(s) Raheem Mathews Fluticasone propionate 0.05 MG/ACTUAT Metered Dose Nasal Spr ay 2016-09-07 23:43:00 Yes 1 spray, NASAL, Daily, # 16 g m, 0 Refill(s) Raheem Mathews Fenofibrate 145 MG Oral Tablet 2016-09-07 23:43:00 Yes 145 mg = 1 tab, PO, Daily, 0 Refill(s) Raheem Her fotnenot Nifedical XL 2016-09-07 21:00:00 No Notes: (Same as: Adalat CC, Procardia XL) Give on empty stomach. Take 1 hour before or 2 hours after meal; "Avoid grapefruit and grapefruit juice". Do not crush Raheem Mathews D5W 1,000 mL 2016-09-07 17:29:00 No 1,000 mL, Rate: 75 ml/hr, Infuse over: 13.3 hr, Route: IV, Dosing Weight 113.636 kg, Total Volume: 1,000, Start date: 09/07/16 12:29:00 CDT, Duration: 30 day, Stop date: 10/07/16 12:28:00 CDT Raheem Mathews doxycycline hyclate 100 mg oral tablet 2015-04-25 20:32:00 Yes 100 mg = 1 tab, PO, Q12H, X 7 day, # 14 tab, 0 Refill(s) Raheem Mathews Ondansetron 4 MG Disintegrating Tablet 2014-08-23 19:57:00 Yes Special Instructions: Dissolve tab under tongue Rahe[facility] Acetaminophen 300 MG / Codeine Phosphate 30 MG Oral Tablet [Tylenol with Codeine #3] 2014-08-23 19:57:00 No 1 - 2 tab, PO, Q4H, PRN Pain, X 2 day, # 20 tab, 0 Refill(s) Raheem Mathews Valium 2014-08-23 15:57:00 No 10 mg, Route: PO, ONCE, Dosing Weight 106.364, kg, Priority: STAT, Start date: 08/23/14 10:57:00, Stop date: 08/23/14 10:57:00 Raheem Oleaann Ondansetron 2014-08-23 14:27:00 No 4 mg, Route: IVP, Drug form: INJ, ONCE, Dosing Weight 106.364, kg, Priority: STAT, Start date: 08/23/14 9:27:00, Stop date: 08/23/14 9:27:00 Raheem fontenot Morphine 2014-08-23 14:27:00 No 4 mg, Route: IVP, Drug form: INJ, ONCE, Dosing Weight 106.364, kg, Priority: STAT, Start date: 08/23/14 9:27:00, Stop date: 08/23/14 9:27:00 [facility] fontenot Ciprofloxacin 500 MG Oral Tablet [Cipro] 2013-12-24 01:58:00 Yes 500 mg = 1 tab, PO, Q12H, # 10 tab, 0 Refill(s) [facility] Dicyclomine Hydrochloride 20 MG Oral Tablet [Bentyl] 2 01:57:00 Yes 20 mg = 1 tab, PO, QID, # 28 tab, 0 Refi ll(s) [facility] Morphine 2013-12-23 23:18:00 No 4 mg, Route: IVP, ONCE, Dosing Weight 106.818, kg, Priority: STAT, Start date: 12/23/13 17:18:00, Stop date: 12/23/13 17:18:00 [facility] Ondansetron 2013-12-23 23:18:00 No 4 mg, Route: IVP, Drug form: INJ, ONCE, Dosing Weight 106.818, kg, Priority: STAT, Start date: 12/23/13 17:18:00, Stop date: 12/23/13 17:18:00 [facility] argnetinanikunj Ultram 50 mg oral tablet 2012-01-21 15:52:46 Yes Navin schwartz Ralph 50 mg, 1 tab, PO, Q4H, PRN, 20 tab, pain, Substitution Allowed [facility] Cipro 500 mg oral tablet 2012-01-21 15:52:40 Yes Navin schwartz Ralph 500 mg, 1 tab, PO, Q12H, 14 tab, Substitution Allowed, TAB [facility] ondansetron 2012-01-21 13:55:00 No Navin Rosas 4 mg, 2 mL, Route: IVP, Drug form: INJ, ONCE, Dosing Weight 111.364, kg, Priority: STAT, Start date: 01/21/12 7:55:00, Stop date: 01/21/12 7:55:00 [facility] hydromorphone 2012-01-21 13:55:00 No Navin fitzgerald 1 mg, 1 mL, Route: IVP, Drug form: SOLN, ONCE, Dosing Weight 111.364, kg, Priority: STAT, Start date: 01/21/12 7:55:00, Stop date: 01/21/12 7:55:00 [facility] Sodium Chloride 0.9% (Bolus) IV 500 mL 2012-01-21 13:55:00 No Navin Rosas 500 mL, Rate: 1, 000 ml/hr, Infuse over: 0.5 hr, Route: IV, kg, Total Volume: 500, Bolus dose, Priority: STAT, Start date: 01/21/12 7:55:00, Duration: 1 doses or times, Stop date: 01/21/12 8:24:00 [facility] Saline Flush 0.9% 2012-01-21 13:55:00 No Navin haile 5 mL, Route: IVP, Drug Form: INJ, Dosing Weight 111.364, kg, PRN, PRN Line Flush, Start date: 01/21/12 7:55:00, Duration: 24 hr, Stop date: 01/22/12 7:54:00 [facility] Vital Signs Vital Name Observation Time Observation Value Comments Source Temperature Oral (F) 2019-10-14 20:19:00 98.5 F [facility] Heart Rate 2019-10-14 20:19:00 [facility] Respitory Rate 2019-10-14 20:19:00 [facility] [place] Systolic (mm Hg) 2019-10-14 20:19:00 D[facility] Diastolic (mm Hg) 2019-10-14 20:19:00 [facility] [place] Temperature Oral (F) 2019-10-14 16:23:00 98.1 F [facility] [place] Heart Rate 2019-10-14 16:23:00 [facility] Respitory Rate 2019-10-14 16:23:00 [facility] [place] Systolic (mm Hg) 2019-10-14 16:23:00 Dino [facility] Diastolic (mm Hg) 2019-10-14 16:23:00 [facility] [place] Temperature Oral (F) 2019-10-14 12:24:00 98.1 F [facility] Heart Rate 2019-10-14 12:24:00 [facility] Respitory Rate 2019-10-14 12:24:00 [facility] [place] Systolic (mm Hg) 2019-10-14 12:24:00 Dino [facility] Diastolic (mm Hg) 2019-10-14 12:24:00 [facility] Height 2019-10-14 10:37:00 175.26 cm [facility] Weight 2019-10-14 10:37:00 [facility] BMI Calculated 2019-10-14 10:37:00 [facility] [place] Height 2019-10-14 02:54:00 175.26 cm [facility] BMI Calculated 2019-10-14 02:54:00 [facility] Weight 2019-10-14 02:54:00 [facility] Systolic (mm Hg) 2016-09-08 16:32:00 D[facility] Diastolic (mm Hg) 2016-09-08 16:32:00 [facility] Heart Rate 2016-09-08 16:32:00 [facility] Respitory Rate 2016-09-08 16:32:00 [facility] [place] Temperature Oral (F) 2016-09-08 16:32:00 97.9 F [facility] Temperature Oral (F) 2016-09-08 12:24:00 97.7 F [facility] Heart Rate 2016-09-08 12:24:00 [facility] Respitory Rate 2016-09-08 12:24:00 [facility] Systolic (mm Hg) 2016-09-08 12:24:00 Dino [facility] Diastolic (mm Hg) 2016-09-08 12:24:00 [facility] [place] Respitory Rate 2016-09-08 10:42:00 [facility] Heart Rate 2016-09-08 10:42:00 [facility] Temperature Oral (F) 2016-09-08 10:42:00 97.7 F [facility] [place] Systolic (mm Hg) 2016-09-08 10:42:00 Dino [facility] Diastolic (mm Hg) 2016-09-08 10:42:00 [facility] [place] BMI Calculated 2016-09-07 20:00:00 [facility] Height 2016-09-07 20:00:00 175.26 cm [facility] Weight 2016-09-07 20:00:00 [facility] Weight 2016-09-07 14:16:00 [facility] BMI Calculated 2016-09-07 14:16:00 [facility] Height 2016-09-07 14:16:00 175.26 cm [facility] Temperature Oral (F) 2016-09-04 11:16:00 98 F [facility] Respitory Rate 2016-09-04 11:16:00 [facility] Heart Rate 2016-09-04 11:16:00 [facility] [place] Systolic (mm Hg) 2016-09-04 11:16:00 [facility] [place] Diastolic (mm Hg) 2016-09-04 11:16:00 [facility] [place] Heart Rate 2016-09-04 10:04:00 [facility] Respitory Rate 2016-09-04 10:04:00 [facility] Systolic (mm Hg) 2016-09-04 10:04:00 [facility] [place] Diastolic (mm Hg) 2016-09-04 10:04:00 [facility] Height 2016-09-04 09:22:00 175.26 cm [facility] Weight 2016-09-04 09:22:00 [facility] BMI Calculated 2016-09-04 09:22:00 [facility] [place] Respitory Rate 2016-09-04 09:22:00 [facility] Heart Rate 2016-09-04 09:22:00 [facility] [place] Systolic (mm Hg) 2016-09-04 09:22:00 Dino rial [facility] Diastolic (mm Hg) 2016-09-04 09:22:00 [facility] Temperature Oral (F) 2016-09-04 09:22:00 98.1 F [facility] Weight 2015-04-25 19:29:00 [facility] BMI Calculated 2015-04-25 19:29:00 [facility] [place] Respitory Rate 2015-04-25 19:29:00 [facility] Temperature Oral (F) 2015-04-25 19:29:00 98.3 F [facility] [place] Systolic (mm Hg) 2015-04-25 19:29:00 [facility] [place] Diastolic (mm Hg) 2015-04-25 19:29:00 [facility] [place] Heart Rate 2015-04-25 19:29:00 [facility] [place] Height 2015-04-25 19:29:00 175.26 cm [facility] Temperature Oral (F) 2014-08-23 20:26:00 97.4 F [facility] Heart Rate 2014-08-23 20:26:00 [facility] Respitory Rate 2014-08-23 20:26:00 [facility] [place] Systolic (mm Hg) 2014-08-23 20:26:00 Dino [facility] Diastolic (mm Hg) 2014-08-23 20:26:00 [facility] [place] Weight 2014-08-23 14:03:00 [facility] Temperature Oral (F) 2014-08-23 14:03:00 97.6 F [facility] Heart Rate 2014-08-23 14:03:00 [facility] [place] Respitory Rate 2014-08-23 14:03:00 [facility] Systolic (mm Hg) 2014-08-23 14:03:00 Dino [facility] Diastolic (mm Hg) 2014-08-23 14:03:00 [facility] BMI Calculated 2013-12-23 21:27:00 [facility] Weight 2013-12-23 21:27:00 [facility] Height 2013-12-23 21:27:00 175.26 cm [facility] Respitory Rate 2013-12-23 21:27:00 [facility] Temperature Oral (F) 2013-12-23 21:27:00 98.0 F [facility] [place] Heart Rate 2013-12-23 21:27:00 [facility] Diastolic (mm Hg) 2013-12-23 21:27:00 [facility] Systolic (mm Hg) 2013-12-23 21:27:00 [facility] [place] Height 2012-01-21 11:58:00 175.26 cm [facility] [place] Weight 2012-01-21 11:58:00 [facility] Procedures Procedure Date / Time Performed Performing Clinician [facility] Appendectomy [facility] Carpal tunnel release<sup>1</sup> [facility] Cholecystectomy [facility] Hand repair<sup>2</sup> [facility] Knee reoperations<sup>3</sup> Ct [facility] Encounters Start Date/Time End Date/Time Encounter Type Admission Type Attendi ng Clinicians Care Facility Care Department Encounter ID Source 2019-10-13 21:51:32 2019-10-14 19:27:00 Outpatient Shannan Chapmanel [facility] [id number] 2019-10-14 03:45:00 2019-10-14 03:45:00 Outpatient E [id number] 2018-06-10 09:57:00 2018-06-10 23:59:00 Outpatient ChitoDinorah MHHOIP HOIP [id number] 2016-09-07 09:07:00 2016-09-08 13:50:00 [id number] 2016-09-04 04:20:00 2016-09-04 06:25:00 Outpatient Karli Dias MHSE MHSE [id number] 2015-04-25 13:16:00 2015-04-25 14:58:00 Outpatient Tata Ghosh MHSE MHSE [id number] 2014-08-23 09:01:00 2014-08-23 15:27:00 Outpatient Margy Davis MHIE MHIE [id number] 2013-12-23 15:25:00 2013-12-23 20:25:00 Outpatient Hood Corea MHIE [facility]IE [id number] 2013-04-11 16:19:00 2013-04-11 23:59:00 Outpatient Lois Santana [facility] [id number] Results Test Description Test Time Test Comments Results Result Comments Source CHEST 2 VIEWS 2020-01-20 14:15:00 [facility] 1950 Sex: [place] [address] Patient Name: ASHKAN MCKEON JR MR #: [id number] : 1950 Age/Sex: 69/M Req #: [id number] Adm Physician: Ordered by: MALORIE ECHOLS MD Report #: [id number] Location: OR Room/Bed: Procedure: [id number] DX/CHEST 2 VIEWS Exam Date: 01/20/20 Exam Time: 1312 REPORT STATUS: Signed EXAMINATION: CHEST 2 VIEWS INDICATION: Pre-operative COMPARISON: None FINDINGS: LINES/TUBES:None LUNGS:The lungs are well-inflated. No focal consolidation or pulmonary edema. PLEURA:No pleural effusion or pneumothorax. MEDIASTINUM:The cardiomediastinal silhouette appears normal in size and shape. BONES/SOFT TISSUES:No acute osseous injury. ABDOMEN:No free air under the diaphragm. Round peripherally calcified structure in the left upper abdomen, possibly splenic. IMPRESSION: No focal pneumonia or pulmonary edema. Signed by: Kehinde Walters MD on 01/20/2020 2:16 PM Dictated By: KEHINDE WALTERS MD [id number] Transcribed By: SHABNAM on 01/20/20 1416 COPY TO: MALORIE ECHOLS MD URINE AND STOOL 2019-10-14 08:57:00 Clear (10/14/19 3:57 AM ) [facility] URINE AND STOOL 2019-10-14 08:57:00 Test Item UA Spec Grav (test code = UA Spec Grav) 1.030 1 [facility] [id number] 08:57:00* Test Item Value Reference Range Interpretation Comments UA pH (test code = UA pH) 5.0 1 5.0-8.0 [facility] [id number] 08:57:00Negative *NA*(10/14/19 3:57 AM) [facility] [id number] 08:57:00Negative (10/14/19 3:57 AM) [facility] [id number] 08:57:00Negative (10/14/19 3:57 AM) [facility] [id number] 08:57:00Trace *ABN*(10/14/19 3:57 AM) [facility] [id number] 08:57:004[facility] [id number] 08:57:003[facility] [id number] 08:57:001 [facility] [id number] 08:53:17667Xzikaajy [id number] 08:53:42262Kmklvoql ZvryyuyTMBXJI1824-64-49 08:53:0030[facility]annLIPIDS 2019-10-14 08:53:00* Test Item Value Reference Range Interpretation Comments CHD Risk (test code = CHD Risk) 4.87 1 4.00-7.30 [facility] [id number] 08:53:0073[facility] [id number] 08:53:00* Test Item Value Reference Range Interpretation Comments VLDL (test code = VLDL) 43 1 [facility]annSPECIAL [id number] 08:53:008.9[facility] HermannCARDIAC [id number] 03:08:66335Snxpdpkz HermannCARDIAC [id number] 03:08:00 2.9[facility] HermannCARDIAC [id number] 03:08:00<0.02[facility] CARDIAC [id number] 03:08:00* Test Item Value Reference Range Interpretation Comments CK MB Index (test code = CK MB Index) 2.5 1 <=2.5 [facility] HermannCHEM [id number] 03:08:94675Xgfmgfpo HermannCHEM PANEL 2019-10-14 03:08:0022[facility] HermannCHEM [id number] 03:08:001.14[facility] HermannCHEM [id number] 03:08:31709Ypcajvpy HermannCHEM [id number] 03:08:003.7[facility] HermannCHEM [id number] 03:08:06918Ghnjruii HermannCHEM [id number] 03:08:0028[facility] HermannCHEM [id number] 03:08:008.9 [facility]annCHEM [id number] 03:08:007.2[facility]annCHEM PANEL 2019-10-14 03:08:003.7[facility] HermannCHEM [id number] 03:08:0036[facility] HermannCHEM [id number] 03:08:0024[facility] HermannCHEM [id number] 03:08:0070[facility]annCHEM [id number] 03:08:000.3[facility]annCHEM [id number] 03:08:009.7[facility]annCHEM [id number] 03:08:00* Test Item Value Reference Range Interpretation Comments B/C Ratio (test code = B/C Ratio) 19 1 6-25 [facility]annCHEM [id number] 03:08:003.5[facility]annCHEM PANEL 2019-10-14 03:08:00* Test Item Value Reference Range Interpretation Comments A/G Ratio (test code = A/G Ratio) 1.1 1 0.7-1.6 [facility] LHNJG5334-42-22 03:08:0066[facility]HEMATOLOGY 2019-10-14 03:08:0010.5[facility] KmkwcmbAOHDIZDUNK7903-50-53 03:08:004.41[facility] SlzadotIQHLMREWDM1083-42-24 03:08:0012.8[facility] CbvlzhhZEPEUCITEQ2358-01-59 03:08:0038.0[facility] YknecdwZGRBIQIUSR4267-70-27 03:08:0086.2[facility] TUBJYANMEW4942-47-73 03:08:00* Test Item Value Reference Range Interpretation Comments MCH (test code = MCH) 29.0 pg 27.0-31.0 [facility] XvvvbbrEBGKAHRIGB7613-34-07 03:08:0033.[facility]MATOLOGY 2019-10-14 03:08:0014.2[facility] HfrqencGTPLVOPKJW8769-50-44 03:08:97933Hekbmwsj HhrylyjWCSYZRMQNQ9256-14-22 03:08:007.8[facility] CjlxqytMUEZCCHMMQ6492-99-60 03:08:0062.9[facility] QlnljybFPDITBVLKB3915-81-40 03:08:0028.2[facility] VCQJGUWMKC5619-16-12 03:08:007.2[facility] BnxwxprMBPKROEQNL0249-24-89 03:08:001.2 [facility] WgiucnmNMSRGFSPDB1092-94-58 03:08:000.5[facility]annHEMATOLOGY 2019-10-14 03:08:006.[facility] JtmrctnECKGHYHGUL1143-09-06 03:08:003.0[facility] WalzxjbMSVPHKOQBF1198-38-23 03:08:000.8[facility] HlukwguXUMQKVLIHO8368-28-94 03:08:000.1[facility] JpnudtmGTZOJASXXD0172-47-32 03:08:000.1[facility] CARDIAC THKCPJL5935-35-46 08:25:996977Dqtxpqra HermannCHEM BLBFZ4710-65-48 08:25:88446Zvwuhyjm [facility]annCHEM YAGDW2969-00-65 08:25:0031[facility] GSHEO0017-38-85 08:25:0012[facility] YVEKO6270-57-63 08:25:001.26 [facility] QUOUG1733-55-90 08:25:19515Guqklqhe HermannCHEM PANEL 2016-09-08 08:25:003.6[facility]annCHE[facility] SFUZZ5647-23-04 08:25:0098[facility] RAJZP9404-32-85 08:25:008.9[facility]annCHE[facility] ORMGK7776-58-70 08:25:0010.6[facility]annCHE[facility] AENKN1492-46-47 08:25:0060[facility] MXPTO8032-52-91 08:25:002.8[facility]CHE[facility] LYESB9601-43-66 08:25:002.4 [facility] NviuudrWYTNJCHWER8329-73-68 08:25:002.9[facility]annHEMATOLOGY 2016-09-08 08:25:007.3[facility] MtzfgsxYMZBVBSJIN4199-93-03 08:25:000.4[facility] NngvjefAVVOYBDAYA2698-89-76 08:25:000.9[facility] MimilunIYPBQQYUXH2647-56-21 08:25:005.5[facility] HrbxejuUKLVPSTBTK9464-39-48 08:25:0026.6[facility] WINONAPEPR9495-28-23 08:25:000.1[facility] AdbuaoxSZLBAQACZL1406-72-38 08:25:000.6 [facility] FkeulndKNVXSDZRRA4761-44-95 08:25:0066.6[facility]annHEMATOLOGY 2016-09-08 08:25:0033.2[facility] VacxjfhPZCQFJQOCK7365-45-32 08:25:00* Test Item Value Reference Range Interpretation Comments MCH (test code = MCH) 29.3 pg 27.0-31.0 [facility] AvxldfiZIQCCVEULP1511-87-16 08:25:27278Menfjyab HermannHEMATOLOGY 2016-09-08 08:25:008.8[facility] FjtajlgTGIKRGTJVE5961-93-47 08:25:0015.8[facility] EoufaudMTYEISIXFU2131-56-56 08:25:004.57[facility] CjcfkifLWFUCBCQLF4171-30-89 08:25:0010.9[facility] GxzwkjsKGNNMTZFWU6568-10-69 08:25:0088.3[facility] KXMHWDFBIR5129-34-01 08:25:0040.3[facility] GhmheduFRBEUNYWDS0614-76-43 08:25:00 13.4[facility]annCARDIAC WVJIIWK2614-33-50 15:42:000.8[facility]annCARDIAC AKSHVHK0496-67-21 15:42:00<0.02[facility]annCARD[facility]AC KFZJTGH0842-32-00 15:42:0012.5[facility]annCARD[facility]AC DSJMIFU9025-46-84 15:42:384582Wnguqbxx HermannCHEM EKWKE9174-81-80 15:42:0061[facility]annCHE[facility] XECQD0665-73-18 15:42:009[facility]CHE[facility] TYYYF9091-82-78 15:42:001.1[facility]annCHE[facility] BKIAM2929-99-32 15:42:0011.3[facility]annCHE[facility] WGUOA5609-79-36 15:42:003.7 [facility]CHE[facility] VUDOZ7675-05-98 15:42:000.9[facility]annCHEM PANEL 2016-09-07 15:42:0030[facility]CHE[facility] JUYPJ2191-67-99 15:42:008.8[facility]CHE[facility] YIJHO9590-36-17 15:42:004.0[facility]CHE[facility] CXBKW1691-48-09 15:42:007.7[facility]annCHE[facility] OEALE1421-26-75 15:42:0091[facility]CHE[facility] XUQYA1714-26-73 15:42:0011[facility]CHE[facility] MWUID3737-39-62 15:42:001.24 [facility] TDEDL3592-32-83 15:42:50127Lsnltszs HermannCHEM PANEL 2016-09-07 15:42:92712Oujkubey HermannCHEM POFGZ5090-39-98 15:42:003.3[facility]annCHE[facility] OWNOV9586-31-74 15:42:0034[facility]CHE[facility] RVAIH1598-22-96 15:42:0071[facility]CHE[facility] NLKJZ8849-41-18 15:42:0079[facility] ACJFPAHGVN7549-33-06 15:42:000.1[facility] HsdthamJWRKBPSCEU1131-12-37 15:42:000.6 [facility] MvmbnmsFGEKBQZGDU1134-74-05 15:42:0081.8[facility]annHEMATOLOGY 2016-09-07 15:42:009.6[facility] GxacwbqXDYVFBZLLS2450-05-59 15:42:000.5[facility] EftgvbeUSDRWKSOVB5368-42-15 15:42:001.5[facility] UrcehgyQFHZXYJGSR0683-00-47 15:42:004.9[facility] OilleftUAHSUIPIDS7278-84-41 15:42:0012.7[facility] HTNQRJHJTD4079-86-11 15:42:000.1[facility] ZubetejKZCNOBZCDF5712-64-44 15:42:00 87.3[facility] RijtfkoLFHAFQCWXF4898-20-84 15:42:0015.8[facility]annHEMATOLOGY 2016-09-07 15:42:0013.3[facility] QfxfrtsGLBNNVRSDB8948-59-82 15:42:0011.8[facility] SqmlntnODLEVHBDBO3052-77-63 15:42:0033.1[facility] AjtiiiwVIKBINDRUB5485-54-80 15:42:00* Test Item Value Reference Range Interpretation Comments MCH (test code = MCH) 28.9 pg 27.0-31.0 [facility] JkkgasnJCOPWVFMJH4175-14-86 15:42:0040.1[facility]annHEMATOLOGY 2016-09-07 15:42:50413Qituzdpl BtxtbikTQMRMQXNMD6213-34-57 15:42:008.7[facility] GnuapvcYJGWPNYOKR9035-03-55 15:42:004.59[facility]UR[facility] STOOL 2016-09-07 15:40:00Performed (09/07/16 10:40 AM)[facility] 2016-09-07 15:40:00Negative *NA*(09/07/16 10:40 AM)[facility] VIOAY9272-12-82 15:40:00Negative (09/07/16 10:40 AM)[facility] HFQHG0770-22-39 15:40:00Negative (09/07/16 10:40 AM)[facility] KUVIQ1743-37-12 15:40:000.2[facility] UDYYF1532-47-88 15:40:00 Trace *ABN*(09/07/16 10:40 AM)[facility] AODAQ2748-06-14 15:40:00 Yellow *NA*(09/07/16 10:40 AM)[facility] NJMTF7542-66-84 15:40:00 Clear (09/07/16 10:40 AM)[facility] RXHXP5380-42-71 15:40:00* Test Item Value Reference Range Interpretation Comments UA pH (test code = UA pH) 6.0 1 5.0-8.0 [facility] BJNCD2652-26-26 15:40:00Negative (09/07/16 10:40 AM) [facility] VQMQU6398-36-43 15:40:00* Test Item Value Reference Range Interpretation Comments UA Spec Grav (test code = UA Spec Grav) 1.010 1 [facility] NVELI9495-66-62 15:40:00Negative *NA*(09/07/16 10:40 AM)[facility]CHE[facility] EGCGV0255-68-03 14:17:0091[facility]annCHEM PANEL 2014-08-23 14:17:86566Fturomno HermannCHEM MIBQV0327-61-19 14:17:003.5[facility] IBDVS5836-26-99 14:17:008.2[facility]CHE[facility] AQQZS3802-84-69 14:17:003.8[facility]CHE[facility] EFXEC1972-25-81 14:17:000.9[facility]CHE[facility] PLFYC6981-16-94 14:17:62862Djgegmss HermannCHEM GEBPE2236-58-27 14:17:0065 [facility] TNLFI3850-67-88 14:17:007.2[facility]annCHEM PANEL 2014-08-23 14:17:0053[facility]annCHE[facility] SAOAJ7706-08-15 14:17:009[facility]CHE[facility] XREQG4145-97-66 14:17:0027[facility]annCHE[facility] HOZDH9454-23-01 14:17:71978Pfchpntx [facility]annCHEM UJXDU6466-73-74 14:17:000.4[facility]annCHE[facility] DMPRI5653-68-97 14:17:0074[facility]annCHE[facility] JMRDI3866-63-83 14:17:000.9 [facility]CHE[facility] NJVRA6526-18-07 14:17:0010[facility]annCHEM PANEL 2014-08-23 14:17:003.7[facility]annCHE[facility] TDKKW0486-66-28 14:17:0013.8[facility] RtxngdiELYPAHORPK4505-83-10 14:17:0066.1[facility] GjxnouiOERUUDGJWS6856-80-51 14:17:0027.5[facility] WkhtvhuFRAVHNGMVG3618-07-33 14:17:005.3[facility] ZGUQIESGJJ2407-35-43 14:17:000.5[facility] TqfszmsAEXENPCYQL3024-18-30 14:17:000.1 [facility] UhbjlsoEIGMETVFHT1100-08-90 14:17:000.1[facility]annHEMATOLOGY 2014-08-23 14:17:002.7[facility] PkjudcbMHCVEVGAVE5490-24-79 14:17:000.6[facility] GwajcmuWLWZIFLDUF9315-68-76 14:17:000.5[facility] ZhstiarPSGDPLKBJH7089-29-43 14:17:006.4[facility] JzfigpzWHKOFJFGRX8233-77-54 14:17:009.2[facility] FUCVXTYEGF0039-33-88 14:17:009.7[facility] YqshxueTYUHYIGJMV4789-54-61 14:17:00 4.20[facility] CokqhtsMDSKBVWQUM1751-90-06 14:17:0038.0[facility]annHEMATOLOGY 2014-08-23 14:17:0013.1[facility] QvoakueSBJHUMJXLQ4056-94-60 14:17:0090.5[facility] NfkvksfWXSSHLFMOB8219-41-02 14:17:0034.5[facility] CufdzbcAUWNWPUNQC5535-48-26 14:17:00* Test Item Value Reference Range Interpretation Comments MCH (test code = MCH) 31.2 pg 27.0-31.0 [facility] NrbhilfTKCYWHMERG5358-46-74 14:17:0015.8[facility]annHEMATOLOGY 2014-08-23 14:17:74215Pexxugsh HermannURINE AND UMNDJ9324-52-42 14:17:001.032 [facility] DLMCM8737-80-15 14:17:00Slight *ABN*(08/23/14 9:17 AM) [facility] PXBCB9305-92-79 14:17:00Yellow *NA*(08/23/14 9:17 AM) [facility] NCWFT0123-50-75 14:17:0017[facility] KYXNU3946-62-44 14:17:006[facility] ITZDJ3349-62-46 14:17:00 Negative (08/23/14 9:17 AM)[facility] FRXAX5583-93-96 14:17:00 Negative (08/23/14 9:17 AM)[facility] FZMRH7995-41-80 14:17:00Small *ABN*(08/23/14 9:17 AM)[facility] FHKGY5039-19-05 14:17:005.0 [facility] XLIZL8908-95-97 14:17:00Negative *NA*(08/23/14 9:17 AM) [facility] YPRJM7817-88-89 22:20:0064[facility]annCHEM PANEL 2013-12-23 22:20:004.5[facility]CHE[facility] AOKEB0192-24-24 22:20:001.2[facility]annCHE[facility] FOHGY3538-61-04 22:20:003.6[facility]CHE[facility] ICGZH0207-40-92 22:20:0016[facility]CHE[facility] QKHBL6359-28-23 22:20:25626Rbwqeibj HermannCHEM YACUL2909-93-35 22:20:0024[facility]annCHE[facility] GKFLE3740-08-29 22:20:0097 [facility] QXGCC6020-55-73 22:20:0010.0[facility]annCHEM PANEL 2013-12-23 22:20:02333Dyapikvc HermannCHEM KZAKH1024-37-21 22:20:009.2[facility]annCHE[facility] ZECCK0832-29-50 22:20:0056[facility]CHE[facility] QFERS5518-69-98 22:20:0067[facility]annCHE[facility] DHBMW6556-63-26 22:20:000.6[facility]annCHE[facility] LLXUW2780-99-71 22:20:68108Dmkuddco HermannCHEM OFYKO8820-30-42 22:20:0013 [facility]CHE[facility] ECOWB7797-11-02 22:20:0016.6[facility]annCHEM PANEL 2013-12-23 22:20:001.0[facility]annCHEM CXHRR3395-07-13 22:20:004.7[facility] IgzcetsHEKVIWJAUA1706-94-97 22:20:000.1[facility] FzwxvfhITUQAALBHM8962-09-30 22:20:000.6[facility] OcyjkqePQPDPPGPYH6141-33-39 22:20:001.7[facility] IOJRWAMVNA7228-28-55 22:20:0016.5[facility] BdywmndQLGJKNCROY0622-96-66 22:20:00 1.0[facility] DhazuecTMXINVLDXD1548-09-48 22:20:000.1[facility]annHEMATOLOGY 2013-12-23 22:20:008.9[facility] QkiccpfWTGKMYONMX8106-60-20 22:20:005.0[facility] IchpafxQTVYWDKGSO6382-62-07 22:20:0085.4[facility] HerwjrdCPPKSOSROS3279-96-88 22:20:0014.7[facility] XinhbjoIHHHIMQGGR0758-50-49 22:20:06348Cpgvnoye [place] AQRLTMUIHH0706-38-66 22:20:009.2[facility] WkvvaheZEQOZORXQW7930-26-50 22:20:00 5.63[facility] WrcfknqZCHCZRORLO7717-76-09 22:20:0019.3[facility]annHEMATOLOGY 2013-12-23 22:20:0089.8[facility] FwggmocVWRHJPDEMY6004-22-73 22:20:0016.5[facility] VcukuybDNPRGDROGF5437-44-81 22:20:0050.5[facility] SegbzcxRFBIJVBPVN9819-80-40 22:20:0032.6[facility] YoebaeqRQTLEFXCAI6379-00-69 22:20:00* Test Item Value Reference Range Interpretation Comments MCH (test code = MCH) 29.3 pg 27.0-31.0 [facility] NvtngztRNPZDAPNW4738-48-51 14:15:0012[facility]annCHEMISTRY 2012-01-21 14:15:0013.8[facility] UmcyjswNQMABIGQA8979-91-98 14:15:001.1[facility] NkivhpdUQXHUGSAX5479-22-06 14:15:003.7[facility] UwgfwgbGJDXHXHOG0822-87-86 14:15:0073[facility] EbtislyQGHTPBJBU8874-44-92 14:15:001.1[facility] RROHODSIT6329-58-59 14:15:09588Blzhjefd RqwkploJEMASAYRG2801-76-98 14:15:0013 [facility] EpouaoxYNGRDOPVM4970-42-62 14:15:0028[facility]annCHEMISTRY 2012-01-21 14:15:008.7[facility] YbgynpyVZSUVUZFZ3525-57-20 14:15:003.8[facility] JjteyhbLRMGWNWRO6710-00-83 14:15:17357Hahsfwan EntoaxqJKTWRGPFG2838-54-78 14:15:19119Qxeaiifb VviyxnfWMUOGLNQG0083-77-54 14:15:004.1[facility] IXODCHSZX0612-21-33 14:15:0085[facility] TtfapxaIMIIFXVPI8748-33-00 14:15:0062 [facility] YsjknbzBFIEQAIHM3135-98-67 14:15:007.8[facility] HermannCHEMISTRY 2012-01-21 14:15:000.7[facility] CpgrynaMQNQMTXCY1473-29-08 14:15:0045[facility] DffixaqLAOVCLDGP1212-80-08 14:15:39743Qlytlqpw IuuqzqzWORUNEZLFP0130-68-16 14:15:0039.2[facility] JlsqlhdIBDHEKZFOU5553-82-33 14:15:02050Jqbyhirp [facility] MYCPFUXDAE4236-53-95 14:15:0034.2[facility] ZkcnzblMIGIQTNQNL9748-17-56 14:15:00 91.1[facility] GqrhyxrINOCGZPTQY4802-87-38 14:15:0014.5[facility]annHEMATOLOGY 2012-01-21 14:15:00* Test Item Value Reference Range Interpretation Comments MCH (test code = MCH) 31.2 pg 27.0-31.0 H [facility] LsjjowiINMFIDRNQR5143-29-58 14:15:008.2[facility]annHEMATOLOGY 2012-01-21 14:15:0013.4[facility] YvotrwuBZTUJIYULA3742-47-86 14:15:004.30[facility] BnxsziaCYMPHDDUHQ0189-28-49 14:15:0010.2[facility] KniysxwEDXZZWPSGZ3259-61-85 14:15:000.1[facility] NpthwldGZZZPVZHFV2513-92-20 14:15:000.1[facility] CCBRGHTMPO0661-56-07 14:15:000.6[facility] VoydmmbHIRBTWLUZX6058-38-22 14:15:00 14.9[facility] LmceuuwDABITUCONE5526-72-38 14:15:0077.7[facility]annHEMATOLOGY 2012-01-21 14:15:001.5[facility] YlodtqhKPNAWWZHLR0664-39-65 14:15:008.0[facility] UjhyjdrANUJZSEZDN4897-68-30 14:15:000.6[facility] MlimrftKIYTFJUSOR8203-99-70 14:15:001.2[facility] ZpjcychZWBUUTNLEY9053-09-61 14:15:005.6[facility] ORMERAPEUC9460-05-86 12:07:0042[facility] OvvpzfdRXTMLRPQOK2575-11-86 12:07:0091 [facility] XgsjkteTPIXOPHIUL9348-70-80 12:07:00Few /HPF *NA*(01/21/2012 06:07:00) [facility] CjzjuesZKNNIULLVF4931-47-71 12:07:00Slight *ABN*(01/21/2012 06:07:00) [facility] JbvvsycMBTZMFHGQL1028-60-77 12:07:00Negative (01/21/2012 06:07:00) [facility] TzbgqcyWYYNUKNXGU1170-01-00 12:07:00Moderate *ABN*(01/21/2012 06:07:00) [facility] MkezphgKXPUTBDSZK4303-82-08 12:07:00Negative *NA*(01/21/2012 06:07:00) [facility] HxrvaynBQHELPYFFB8289-37-42 12:07:00Trace mg/dL *ABN*(01/21/2012 06:07:00) [facility] PlcykyyNTUWDXJABT9921-76-31 12:07:00 Occasional /LPF *NA*(01/21/2012 06:07:00) [facility] JlxstorSVUXSBCHNQ6556-09-36 12:07:00Moderate *ABN*(01/21/2012 06:07:00) [facility] HermannURINALYSIS 2012-01-21 12:07:001.020[facility] TsncookWIVZFLTIBL2454-83-72 12:07:10986 mg/dL *ABN*(01/21/2012 06:07:00) [facility] WmoqqxrZNIPBKKKLP1937-02-84 12:07:0030 mg/dL *ABN*(01/21/2012 06:07:00) [facility] DyeghupOKMVFOVFJT0967-87-99 12:07:00 5.0[facility]
[2020-01-22] MEDS ORDERED: MORPHINE SULFATE INJ 4 MG/ML INJ 1ML IM PRN (11:15)
[2020-01-22 11:16] VITALS: BP 147/88
[2020-01-22] MEDS: LACTATED RINGER'S 1,000 ML IV SCH ×2 (11:30→23:28)
[2020-01-22 11:31] VITALS: BP 147/88
[2020-01-22] MEDS ORDERED: ROCURONIUM BROMIDE 10 MG/ML 5ML VIAL IV ONE (12:07)
[2020-01-22] MEDS ORDERED: NEOSTIGMINE 1 MG/ML 10ML VIAL ONE (12:07)
[2020-01-22] MEDS ORDERED: DEXAMETHASONE SOD PHOS INJ 4 MG/ML VIAL ONE (12:07)
[2020-01-22] MEDS ORDERED: LIDOCAINE HCL 2% LOCAL INJ 5 ML SDV VIAL INJ ONE (12:07)
[2020-01-22] MEDS ORDERED: GLYCOPYRROLATE INJ 0.2 MG/ML VIAL ONE (12:07)
[2020-01-22] MEDS ORDERED: PROPOFOL IV EMULSION 10 MG/ML 20 ML VIAL ONE (12:07)
[2020-01-22] MEDS ORDERED: ONDANSETRON HCL INJ 2MG/ML 2ML 2 MG/ML VIAL ONE (12:07)
[2020-01-22] MEDS ORDERED: PHENYLEPHRINE HCL 1% 10 MG/ML VIAL ONE (12:07)
[2020-01-22] MEDS ORDERED: SEVOFLURANE INHAL SOLN 250 ML PEN BTL ONE (12:07)
[2020-01-22] MEDS ORDERED: MIDAZOLAM HCL 2 MG/2 ML VIAL ONE (12:47)
[2020-01-22] MEDS ORDERED: FENTANYL CITRATE/PF 100MCG/2 ML INJ ONE (12:47)
--- NOTE | 2020-01-22 13:33 | Operative Report ---
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 PROCEDURES: 1. C3-4 anterior cervical diskectomy and microsurgical osteophyte resection and allograft fusion, 79465. 2. C4-5 anterior cervical diskectomy and microsurgical osteophyte resection and allograft fusion, 77859. 3. Preparation of tricortical iliac crest allograft, [id number]. 4. C3-C4-C5 anterior cervical plating with Synthes CSLP plate, 11439. ANESTHESIA: General. INDICATIONS: The patient is a 69-year-old man, who presents with C3-4 and C4-5 spondylosis and disk herniations with cord compression and severe cervical myelopathy syndrome. He was taken to surgery for 2-level anterior cervical decompression and fusion. PROCEDURE IN DETAIL: After induction of general anesthesia, the patient was placed on the operating table in supine position. The right side of the neck was prepped and draped in sterile fashion. The fluoroscopic C-arm was positioned in cross-table lateral orientation. A transverse incision was created on the right side of the neck, superimposed on the C4 vertebral body as determined by fluoroscopy. The platysma was divided in line with the incision. A subplatysmal dissection was carried out and avascular plane of dissection was developed medially. Sternocleidomastoid muscle was followed medial to the carotid sheath to the anterior border of cervical spine. The deep cervical fascia was opened. The esophagus was retracted to the left. The attachments of longus colli muscles to the anterolateral aspects of vertebral bodies of C3, C4, and C5 were divided. The anterior longitudinal ligament was resected. Weems posts were inserted in C3 and C5 and the Weems distractor was used to distract both disk spaces simultaneously. The anterior annulus of disk was incised with a #11 blade. The contents of both disks were thoroughly evacuated with angled curettes and pituitary instruments. The posterior osteophytes were meticulously drilled with a 2 mm cutting bur and until they were completely removed. The posterior annulus of the disk, a large amount of herniated disk material, and the posterior longitudinal ligament were resected layer by layer at both levels until the dura was fully exposed and decompressed. The medial aspects of the uncinate processes were resected bilaterally to further expose any compressed origins of the corresponding nerve roots at both levels. After satisfactory decompression had been achieved, the endplates were prepared for fusion. Two pieces of tricortical iliac crest allograft were cut to size and shapes of the disk spaces and were inserted into disk spaces under distraction and fluoroscopic guidance. The distraction was released and the distraction posts were removed. A Synthes CSLP variable type anterior cervical plate was selected and affixed to vertebral bodies of C3, C4, and C5 with 3 pairs of 14 x 4.35 mm screws. All screw holes were drilled and tapped on the lateral fluoroscopic guidance. All screws were locked with the appropriate locking screws. An excellent construct was obtained. The wound was copiously irrigated with bacitracin solution. Meticulous hemostasis was secured. The retractor was removed. The platysma was closed with 3-0 Vicryl sutures. The skin was closed with 4-0 Monocryl sutures in subcuticular fashion. Steri-Strips and dressing were applied. The patient was awakened, extubated, and taken to postanesthesia care unit in stable condition. No intraoperative complications were encountered. Estimated blood loss was 30 mL. Jaylan Moise MD PP/OZIELL /[id number]
[2020-01-22] MEDS: CEFAZOLIN SOD 1 GM/NS 50ML 50 ML IV SCH ×2 (14:14→20:53)
[2020-01-22] MEDS ORDERED: INSULIN LISPRO 100 UNIT/1 ML 3ML VIAL SQ SCH (15:00)
[2020-01-22 16:19] VITALS: BP 150/84
[2020-01-22] MEDS: GLIMEPIRIDE 2 MG TAB PO SCH (16:42)
[2020-01-22] MEDS: METFORMIN HCL 500 MG TAB PO SCH (16:42)
[2020-01-22] MEDS ORDERED: GLIMEPIRIDE 4 MG PO SCH (17:00)
[2020-01-22] MEDS: INSULIN LISPRO 100 UNIT/1 ML 3ML VIAL SQ SCH (17:13)
[2020-01-22 20:00] VITALS: BP 146/90
[2020-01-22] MEDS: CEPACOL SORE THROAT LOZENGES PO PRN (20:44)
[2020-01-22] MEDS ORDERED: INSULIN GLARGINE 100 UNITS/ML VIAL SQ SCH (21:00)
[2020-01-22] MEDS ORDERED: INSULIN DETEMIR 100 UNIT SC SCH (21:00)
[2020-01-22 23:30] VITALS: BP 146/90
[2020-01-23] VITALS: BP 157/75
[2020-01-23 04:00] VITALS: BP 143/88
[2020-01-23] MEDS: CEFAZOLIN SOD 1 GM/NS 50ML 50 ML IV SCH (05:02)
[2020-01-23] MEDS: LACTATED RINGER'S 1,000 ML IV SCH (05:02)
[2020-01-23] MEDS ORDERED: LEVOTHYROXINE SODIUM 100 MCG TAB PO SCH (06:00)
--- NOTE | 2020-01-23 07:00 | NUR ---
Received report from off going nurse. Pt sitting up in chair and no apparent distress. Pt denies pain. Pt request throat lozenge for irritated throat.
[2020-01-23] MEDS: CEPACOL SORE THROAT LOZENGES PO PRN (07:32)
[2020-01-23] MEDS: INSULIN LISPRO 100 UNIT/1 ML 3ML VIAL SQ SCH (07:34)
--- NOTE | 2020-01-23 07:45 | Diagnostic Imaging Report ---
X-ray Cervical Spine, 2 views HISTORY: Pain. COMPARISON: None. FINDINGS: Limited sensitivity for detection of subtle fractures and ligamentous abnormalities. On the lateral view, the cervical spine is visualized from the skull base to C5. The alignment is normal. C3-C5 anterior plate and screw fixation. No acute displaced fracture involving the visualized cervical spine. Disc Spaces and Uncovertebral Joints: C3 and C4 disc spaces. Facets: The facet joints are unremarkable. IMPRESSION: No acute radiographic abnormality. Mild degenerative changes. C3-C5 anterior plate and screw fixation appears intact. Signed by: Joe Chi DO on 01/23/2020 7:42 AM
[2020-01-23] MEDS: GLIMEPIRIDE 2 MG TAB PO SCH (07:53)
[2020-01-23] MEDS: METFORMIN HCL 500 MG TAB PO SCH (07:53)
--- NOTE | 2020-01-23 08:20 | Diagnostic Imaging Report ---
OR Fluoroscopy: IMPRESSION: Fluoroscopy service provided in the OR. Interpretation not requested. Signed by: Nile Barbour MD on 01/23/2020 8:17 AM
[2020-01-23 08:25] VITALS: BP 136/77
[2020-01-23] MEDS ORDERED: NORCO 7.5-3251 EACH PO (08:37)
[2020-01-23 08:38] VITALS: BP 136/77
[2020-01-23] MEDS ORDERED: FENOFIBRATE 145 MG TAB PO SCH (09:00)
[2020-01-23] MEDS ORDERED: LISINOPRIL 20 MG TAB PO SCH (09:00)
[2020-01-23] MEDS ORDERED: LEVOTHYROXINE SODIUM 88 MCG TAB PO SCH (09:00)
--- NOTE | 2020-01-23 10:40 | NUR ---
Pt off floor for home, patient walked to lobby and tolerated well. Pt denies pain 0/10. C/o throat irritation only. Pt in no apparent distress.
[2020-01-23] MEDS ORDERED: SIMVASTATIN 40 MG TAB PO SCH (21:00)
== END 2020-01-23 10:40 | disposition home or self-care (01) ==
LOC: OR 05:29 → PACU V 09:30 → MED/SURG 11:03
PROVIDERS: ADMIT Neurological Surgery; ATTEND Neurological Surgery
DX: M50.020 Cervical disc disorder with myelopathy, mid-cervical region, unspecified level (principal); Z20.828 Contact with and (suspected) exposure to other viral communicable diseases
CPT/HCPCS: 20930; 22551; 22552; 22845; 36415 ×2; 63075; 63076; 71046; 72040; 76000; 80048; 82948; 85025; 85610; 85730; 86850; 86900; 88304; 88311; 93005; C1713 ×4; C1768; G0378 ×2; J0131; J0690 ×2; J1100; J1815; J2001; J2175; J2250; J2370; J2405; J2550; J2704; J2710; J3010; J3370; J7121; U0002

== ENCOUNTER → 2020-02-19 | Outpatient (RCR) | payer OTHER ==
[~2020-02-19] MED LIST changes: +NORCO 7.5-3251 EACH PO
== END ==
LOC: PT 02-03 08:44
PROVIDERS: ATTEND Neurological Surgery
DX: M50.020 Cervical disc disorder with myelopathy, mid-cervical region, unspecified level (principal)

== ENCOUNTER → 2020-02-23 | Outpatient (CLI) | payer OTHER | LOC: RAD 11:00 | PROVIDERS: ATTEND Neurological Surgery | DX: M50.20 Other cervical disc displacement, unspecified cervical region (principal); M43.22 Fusion of spine, cervical region | CPT/HCPCS: 72050 ==

== ENCOUNTER 2020-03-11 08:45 | Outpatient (RCR) | payer OTHER | END 2020-03-21 | LOC: PT 08:45 | PROVIDERS: ATTEND Neurological Surgery | DX: M50.020 Cervical disc disorder with myelopathy, mid-cervical region, unspecified level (principal); M62.81 Muscle weakness (generalized); R26.2 Difficulty in walking, not elsewhere classified | CPT/HCPCS: 97139 ==

== ENCOUNTER 2020-04-14 09:00 | Outpatient (RCR) | payer MEDICARE, OTHER | END 2020-04-18 | LOC: PT 09:00 | PROVIDERS: ATTEND Neurological Surgery | DX: M50.020 Cervical disc disorder with myelopathy, mid-cervical region, unspecified level (principal) | CPT/HCPCS: 97139 ==

== ENCOUNTER → 2020-05-19 | Outpatient (RCR) | payer OTHER, MEDICARE | LOC: PT 04-19 09:02 | PROVIDERS: ATTEND Neurological Surgery | DX: M50.020 Cervical disc disorder with myelopathy, mid-cervical region, unspecified level (principal) ==

== ENCOUNTER 2020-05-25 08:30 | Outpatient (RCR) | payer OTHER, MEDICARE | END 2020-06-18 | LOC: PT 08:30 | PROVIDERS: ATTEND Neurological Surgery | DX: M50.020 Cervical disc disorder with myelopathy, mid-cervical region, unspecified level (principal) | CPT/HCPCS: 97139 ==

== ENCOUNTER → 2021-05-04 | Outpatient (CLI) | payer MEDICARE, OTHER | LOC: RAD 09:23 | PROVIDERS: ATTEND Internal Medicine | DX: R07.81 Pleurodynia (principal) | CPT/HCPCS: 71111 ==